=== PATIENT | female | born 1975 | race Caucasian/White ===

== ENCOUNTER 2020-03-20 15:20 | Inpatient (IN) | payer MEDICAID, SELFPAY ==
[2020-03-20] VITALS (9 sets, daily range): BP systolic 129–168; BP diastolic 75–101; PULSE 60–123; RESP 16–32; TEMP 37.4–38.1; O2SAT 94–99; BMI 38.0
--- NOTE | 2020-03-20 16:21 | ECG_ITS ---
[facility] Test Date: 2020-03-20 Pat Name: Kandy Nieves Department: Room: Gender: Female Cell Tuber Hand: : 1975 Requested By: Yael Dobson Order Number: [id number] Ying MD: Chava Rosales M.D. Measurements Intervals [place] Rate: 98 P: 43 IN: 159 QRS: 64 QRSD: 86 T: 37 QT: 327 QTc: 418 Interpretive Statements SINUS RHYTHM POSSIBLE LEFT ATRIAL ENLARGEMENT [-0.1mV P WAVE IN V1/V2] Compared to ECG 08/31/2015 14:20:09 No significant changes Electronically Signed On 03-21-2020 16:01:05 CDT by Chava Rosales M.D. [email or web address]
--- NOTE | 2020-03-20 16:22 | XRR_ITS ---
PROCEDURE INFORMATION: Exam: XR Chest, 1 View Exam date and time: 03/20/2020 5:16 PM Age: 44 years old Clinical indication: Cough TECHNIQUE: Imaging protocol: XR of the chest Views: Frontal portable upright view of the chest. COMPARISON: CR Chest 1 [place] [id number] 08/31/2015 3:00 PM FINDINGS: Lungs: The lungs are clear bilaterally. The pulmonary vasculature remains congested. Pleural space: No pleural effusion. No pneumothorax. Heart/Mediastinum: The heart is normal in size and contour. Mediastinum: Stable. Diaphragm: The right hemidiaphragm remains mildly elevated. Bones/joints: Stable. Organs: The gallbladder is likely surgically absent, with metallic clips overlying the gallbladder fossa. XR/XR chest 1V portable [id number] IMPRESSION: 1. Pulmonary vascular congestion, stable. 2. Prior cholecystectomy.
--- NOTE | 2020-03-20 16:35 | PC.NURSE ---
PT BEGAN HAVING WORD LILLIAN. INFORMED DR. PLAZA.
--- NOTE | 2020-03-20 16:46 | PC.NURSE ---
DR. PLAZA AT BEDSIDE EVALUATING PT VO FOR HEAD CT.
--- NOTE | 2020-03-20 16:56 | ED_ITS ---
HPI - General Adult General: Chief complaint: General Medical Stated complaint: fever, cough, CP, SOB Time Seen by Provider: 03/20/20 15:59 Source: patient and family Mode of arrival: ambulatory Limitations: no limitations History of Present Illness: HPI narrative: Kandy is a nice 44-year-old female who comes in complaining of generalized malaise, fever and loss of sense of ta ani/smell. The patient states that she has been this way for the past 2 to 3 days. She had a temperature of 102 earlier today. Patient states she just feels tired and fatigued. She is most concerned about possible COVID-19 infection. She is not been exposed to anybody to her knowledge but admits that it could be a possibility. Patient denies any other complaints or concerns. Associated symptoms: Reports headache(s) and malaise; Deny chest pain, diaphoresis, rash, palpitations, syncope or vomiting Review of Systems Const: Reports: fever(s), chills, body aches, fatigue, malaise and other (Patient reports loss of sense of taste and loss of sense of smell.); Denies: diaphoresis Eyes: Denies: change in vision ENMT: Denies: throat pain Card: Denies: chest pain, palpitations, syncope, pre-syncope or dyspnea on exertion Resp: Denies: non-productive cough GI: Denies: abdominal pain, vomiting or diarrhea : Denies: flank pain, dysuria, urinary frequency or urinary urgency Musc: Denies: neck pain, back pain or extremity pain Skin/Breast: Denies: rash or pruritus Neuro: Reports: headache(s); Denies: numbness in extremities, weakness in extremities or dizziness Finesse/Lymph: Denies: easy bruising or easy bleeding All/Imm: Denies: urticaria PFSH ED PFSH: Medical History Hypertension Surgical History H/O knee surgery S/P cholecystectomy Tubal ligation status Family History (Updated 03/20/20 @ 20:22 by Lou Rivera MD) Mother Stroke Mother had an ischemic stroke age 65 Social History (Updated 03/20/20 @ 20:23 by Lou Rivera MD) Smoking and tobacco status: never smoked Alcohol intake: never Substance/Drug Use: never Household members: spouse Housing: House Marital status: Physical Exam Const: COMMON NORMALS: no acute distress, patient oriented x3, no limitations, healthy appearing and well nourished GENERAL APPEARANCE: cooperative, well kempt and well developed HENMT: COMMON NORMALS: normocephalic, atraumatic, external ears normal, EAC's normal and Normal external nose present HEAD & SCALP: normal to inspection, normocephalic and atraumatic FACE & SINUS: normal facial exam and face symmetric NOSE: Normal external nose present and Normal nares present EXTERNAL EAR: Yes external ears normal EXTERNAL AUDITORY CANAL: EAC's normal MOUTH: Normal oral and palatal mucosa present, lip normal and tongue normal Eye: COMMON NORMALS: Equal, round and reactive pupils present and conjunctivae normal GENERAL EYE: appearance normal, both eyes and all related structures ALIGNMENT: Yes alignment normal PERIORBITAL: periorbital findings normal EYELID: eyelids normal CONJUNCTIVA: Yes conjunctivae normal SCLERA: sclerae normal PUPIL: Yes Equal, round and reactive pupils present Neck/C-Spine: COMMON NORMALS: full ROM, no lymphadenopathy, supple, no meningeal signs and no JVD GENERAL: Yes normal visual inspection and Yes trachea midline Chest: COMMONS NORMALS: normal inspection of the chest and normal palpation of entire chest wall Resp: COMMON NORMALS: normal respiratory effort, No retractions and No use of accessory muscles EFFORT & INSPECTION: Yes able to speak in complete sentences and Yes symmetric chest movement AUSCULTATION: no crackles, no rales, no rhonchi and no wheezes Cardio: COMMON NORMALS: no JVD, regular rate, regular rhythm, S1 normal heart sound present and S2 normal heart sound present RATE: regular rate RHYTHM: regular rhythm HEART SOUNDS: S1 normal heart sound present, S2 normal heart sound present, no click, no gallops, no murmurs, no rubs and abnormal split S2 GI: COMMON NORMALS: Soft to palpation and No hepatosplenomegaly present PALPATION: Yes Soft to palpation, No Tenderness to palpation present (GI), No Guarding due to palpation present (GI), No Rigid due to palpation, Yes No hepatosplenomegaly present, No Hernia present, No Palpable mass present and No Pulsatile mass present : COMMON NORMALS: Yes no CVA tenderness BLADDER/KIDNEY EXAM: Yes no CVA tenderness EXTERNAL FEMALE EXAM: No Hernia present Back/Pelvis: COMMON NORMALS: no CVA tenderness, thoracic and lumbar spine normal to inspection, no thoracic nor lumbar tenderness and thoraco-lumbar ROM normal Extremity: COMMON NORMALS: normal to inspection, full ROM, capillary refill normal, no joint enlargement, no clubbing, cyanosis or edema and no calf tenderness Neuro: COMMON NORMALS: patient oriented x3, CN's II-XII intact bilaterally, moves all extremities, no focal motor deficits and no sensory deficits noted MENINGEAL SIGNS: Yes no meningeal signs SPEECH: speech normal Psych: COMMON NORMALS: mental status grossly normal, Normal thought process present, cooperative, normal affect, speech normal and activity/motor behavior normal APPEARANCE: Yes well kempt SPEECH: Yes normal speech THOUGHT PROCESS: Normal thought process present Skin: COMMON NORMALS: no rashes or lesions noted, turgor normal, no jaundice, no petechiae and no mottling GENERAL SKIN EXAM: no rashes or lesions noted and turgor normal Course ED course: 1644 -patient has had an abrupt onset of mental status change. She is not wanting to interact or talk. She shows no sign of lateralizing weakness, seizure or other acute abnormality she is just not speaking as before. We will check a blood sugar and add a head CT to her work-up. 1654 -the patient is now answering questions inappropriately, word salad type of demonstration. She still has no lateralizing weakness. I will add CTA and call a stroke alert. 1700 -Case reviewed with Dr. León and [facility] residential construction instructor for our stroke alert team. He will evaluate the patient CTs and do a telemedicine con sult as soon as possible. 1734 -Case reviewed with Dr. León, please see his consult note for details. He has a NIH of 1 and feels that her word salad/a aphasia symptoms are oscillating. At this time he does not recommend TPA. I have gone back into reevaluate the patient and she is answering cushions appropriately at this time. We will continue to monitor her closely but will not give TPA at this time. Vital Signs: Vital signs: Vital Signs Temperature 99.3 F 03/20/20 15:49 Pulse Rate 112 H 03/20/20 20:00 Respiratory Rate 21 H 03/20/20 19:30 Blood Pressure 141/93 03/20/20 20:00 Pulse Oximetry 95 03/20/20 20:00 MDM - General Adult MDM Narrative: Medical decision making narrative: After the patient had abrupt mental status change the stroke alert was called with Dr. León not believe this was a stroke but likely mental status change secondary to another cause. The patient symptoms have cleared and she is never been febrile here. She has had fatigue, headache but denies any neck pain or stiffness. I discussed the case in full with Dr. Vasquez and Dr. Rivera, they agreed to admit. They will decide whether they want an LP as well but I believe it should be on the 4-1/2-hour window in case the patient would not develop signs of stroke again as she may need TPA. They will evaluate and let me know if they want to proceed with that. At this time the patient is feeling much better and wants to rest. I see no sign of meningitis, sepsis or other infectious syndrome but she is persistently tachycardic I do think COVID-[address] Rivera will continue to work things up from here. Lab Data: Attestation: I reviewed the patient's lab results. Labs: Lab Results 03/20/20 03/20/20 03/20/20 Range/Units 12:45 16:45 16:45 WBC 13.4 H (4.0-10.0) 10^3/ uL RBC 5.46 H (4.1-5.3) 10^6/u L Hgb 16.1 H (11.5-15.3) g/dL Hct 49.2 H (37.0-47.0) % MCV 90.1 (81-99) fL MCH 29.5 (28.0-34.0) pg MCHC 32.7 (30.0-36.0) g/dL RDW 12.7 (12.1-15.1) % Plt Count 325 (130-400) 10^3/c mm MPV 10.5 H (7.4-10.4) fL Neut % (Auto) 89.0 % Lymph % (Auto) 6.6 % [place] % (Auto) 3.6 % Eos % (Auto) 0.0 % Baso % (Auto) 0.1 % Neut # (Auto) 11.92 H (1.8-7.7) 10^3/u L Lymph # (Auto) 0.9 (0.8-4.8) 10^3/u L [place] # (Auto) 0.5 (0.2-0.9) 10^3/u L Eos # (Auto) 0.0 (0.0-0.8) 10^3/u L Baso # (Auto) 0.0 (0.0-0.1) 10^3/u L Nucleated RBC % (a uto) 0 % Nucleated RBCs # 0.0 /100WBC PT Cancelled INR Cancelled APTT (23.9-36.7) SECO NDS D-Dimer (0-0.59) ug/mIFE U Sodium 138 (136-145) mmol/L Potassium 3.8 (3.5-5.1) mmol/L Chloride 100 (98-107) mmol/L Carbon Dioxide 25 (22-29) mmol/L Anion Gap 16.8 (5-19) BUN 14 (6-20) mg/dL Creatinine 0.5 (0.5-0.9) mg/dL GFR Calculation 134.7 H (90-130) mL/min Glucose 130 H (65-115) mg/dL POC Glucose (70-110) mg/dL Estimat Average Gl ucose Hemoglobin A1c (4.0-6.0) % Calculated Osmolal ity 284 L (285-295) mOsm/k g Lactic Acid (0.5-2.2) mmol/L Calcium 10.1 (8.5-10.5) mg/dL Magnesium 2.1 (1.7-2.3) mg/dL Total Bilirubin 0.3 (0.15-1.2) mg/dL AST 16 (0-32) U/L ALT 24 (0-33) U/L Alkaline Phosphata se 66 (35-105) IU/L Troponin T Baselin e (0-10) ng/L Troponin T 120 Min chalkyitsik (0-10) ng/L Delta Troponin T (0-10) ABS# Total Protein 7.9 (6.6-8.7) g/dL Albumin 5.0 (3.5-5.2) g/dL Globulin 2.9 (1.3-4.6) g/dL Procalcitonin (0-0.5) ng/mL HCG, Qual (Negative) Urine Color (Yellow) Urine Appearance (CLEAR) Urine pH (5-7) Ur Specific Gravit y (1.005-1.030) Urine Protein (Negative) Urine Glucose (UA) (Normal) Urine Ketones (Negative) Urine Blood (Negative) Urine Nitrate (Negative) Urine Bilirubin (NEGATIVE) Urine Urobilinogen (Negative) mg/dL Ur Leukocyte Naomie ase (Negative) Urine RBC (0-2) /hpf Urine WBC (0-5) /hpf Ur Squamous Epith Cells (0-5) Amorphous Sediment Urine Bacteria (NONE) Influenza Type A A g (Negative) Influenza Type B A g (Negative) 03/20/20 03/20/20 03/20/20 Range/Units 16:45 16:45 16:45 WBC (4.0-10.0) 10^3/ uL RBC (4.1-5.3) 10^6/u L Hgb (11.5-15.3) g/dL Hct (37.0-47.0) % MCV (81-99) fL MCH (28.0-34.0) pg MCHC (30.0-36.0) g/dL RDW (12.1-15.1) % Plt Count (130-400) 10^3/c mm MPV (7.4-10.4) fL Neut % (Auto) % Lymph % (Auto) % [place] % (Auto) % Eos % (Auto) % Baso % (Auto) % Neut # (Auto) (1.8-7.7) 10^3/u L Lymph # (Auto) (0.8-4.8) 10^3/u L [place] # (Auto) (0.2-0.9) 10^3/u L Eos # (Auto) (0.0-0.8) 10^3/u L Baso # (Auto) (0.0-0.1) 10^3/u L Nucleated RBC % (a uto) % Nucleated RBCs # /100WBC PT INR APTT (23.9-36.7) SECO NDS D-Dimer (0-0.59) ug/mIFE U Sodium (136-145) mmol/L Potassium (3.5-5.1) mmol/L Chloride (98-107) mmol/L Carbon Dioxide (22-29) mmol/L Anion Gap (5-19) BUN (6-20) mg/dL Creatinine (0.5-0.9) mg/dL GFR Calculation (90-130) mL/min Glucose (65-115) mg/dL POC Glucose (70-110) mg/dL Estimat Average Gl ucose Hemoglobin A1c (4.0-6.0) % Calculated Osmolal ity (285-295) mOsm/k g Lactic Acid 1.3 (0.5-2.2) mmol/L Calcium (8.5-10.5) mg/dL Magnesium (1.7-2.3) mg/dL Total Bilirubin (0.15-1.2) mg/dL AST (0-32) U/L ALT (0-33) U/L Alkaline Phosphata se (35-105) IU/L Troponin T Baselin e 6 (0-10) ng/L Troponin T 120 Min chalky[place]ik (0-10) ng/L Delta Troponin T (0-10) ABS# Total Protein (6.6-8.7) g/dL Albumin (3.5-5.2) g/dL Globulin (1.3-4.6) g/dL Procalcitonin (0-0.5) ng/mL HCG, Qual Negative (Negative) Urine Color (Yellow) Urine Appearance (CLEAR) Urine pH (5-7) Ur Specific Gravit y (1.005-1.030) Urine Protein (Negative) Urine Glucose (UA) (Normal) Urine Ketones (Negative) Urine Blood (Negative) Urine Nitrate (Negative) Urine Bilirubin (NEGATIVE) Urine Urobilinogen (Negative) mg/dL Ur Leukocyte Naomie ase (Negative) Urine RBC (0-2) /hpf Urine WBC (0-5) /hpf Ur Squamous Epith Cells (0-5) Amorphous Sediment Urine Bacteria (NONE) Influenza Type A A g (Negative) Influenza Type B A g (Negative) 03/20/20 03/20/20 03/20/20 Range/Units 16:45 16:45 16:45 WBC (4.0-10.0) 10^3/ uL RBC (4.1-5.3) 10^6/u L Hgb (11.5-15.3) g/dL Hct (37.0-47.0) % MCV (81-99) fL MCH (28.0-34.0) pg MCHC (30.0-36.0) g/dL RDW (12.1-15.1) % Plt Count (130-400) 10^3/c mm MPV (7.4-10.4) fL Neut % (Auto) % Lymph % (Auto) % [place] % (Auto) % Eos % (Auto) % Baso % (Auto) % Neut # (Auto) (1.8-7.7) 10^3/u L Lymph # (Auto) (0.8-4.8) 10^3/u L [place] # (Auto) (0.2-0.9) 10^3/u L Eos # (Auto) (0.0-0.8) 10^3/u L Baso # (Auto) (0.0-0.1) 10^3/u L Nucleated RBC % (a uto) % Nucleated RBCs # /100WBC PT 12.70 INR 0.93 APTT 24.5 (23.9-36.7) SECO NDS D-Dimer 0.29 (0-0.59) ug/mIFE U Sodium (136-145) mmol/L Potassium (3.5-5.1) mmol/L Chloride (98-107) mmol/L Carbon Dioxide (22-29) mmol/L Anion Gap (5-19) BUN (6-20) mg/dL Creatinine (0.5-0.9) mg/dL GFR Calculation (90-130) mL/min Glucose (65-115) mg/dL POC Glucose (70-110) mg/dL Estimat Average Gl ucose Hemoglobin A1c (4.0-6.0) % Calculated Osmolal ity (285-295) mOsm/k g Lactic Acid (0.5-2.2) mmol/L Calcium (8.5-10.5) mg/dL Magnesium (1.7-2.3) mg/dL Total Bilirubin (0.15-1.2) mg/dL AST (0-32) U/L ALT (0-33) U/L Alkaline Phosphata se (35-105) IU/L Troponin T Baselin e (0-10) ng/L Troponin T 120 Min chalk[place]ik (0-10) ng/L Delta Troponin T (0-10) ABS# Total Protein (6.6-8.7) g/dL Albumin (3.5-5.2) g/dL Globulin (1.3-4.6) g/dL Procalcitonin 0.04 (0-0.5) ng/mL HCG, Qual (Negative) Urine Color (Yellow) Urine Appearance (CLEAR) Urine pH (5-7) Ur Specific Gravit y (1.005-1.030) Urine Protein (Negative) Urine Glucose (UA) (Normal) Urine Ketones (Negative) Urine Blood (Negative) Urine Nitrate (Negative) Urine Bilirubin (NEGATIVE) Urine Urobilinogen (Negative) mg/dL Ur Leukocyte Naomie ase (Negative) Urine RBC (0-2) /hpf Urine WBC (0-5) /hpf Ur Squamous Epith Cells (0-5) Amorphous Sediment Urine Bacteria (NONE) Influenza Type A A g (Negative) Influenza Type B A g (Negative) 03/20/20 03/20/20 03/20/20 Range/Units 16:45 16:50 17:21 WBC (4.0-10.0) 10^3/ uL RBC (4.1-5.3) 10^6/u L Hgb (11.5-15.3) g/dL Hct (37.0-47.0) % MCV (81-99) fL MCH (28.0-34.0) pg MCHC (30.0-36.0) g/dL RDW (12.1-15.1) % Plt Count (130-400) 10^3/c mm MPV (7.4-10.4) fL Neut % (Auto) % Lymph % (Auto) % [place] % (Auto) % Eos % (Auto) % Baso % (Auto) % Neut # (Auto) (1.8-7.7) 10^3/u L Lymph # (Auto) (0.8-4.8) 10^3/u L [place] # (Auto) (0.2-0.9) 10^3/u L Eos # (Auto) (0.0-0.8) 10^3/u L Baso # (Auto) (0.0-0.1) 10^3/u L Nucleated RBC % (a uto) % Nucleated RBCs # /100WBC PT INR APTT (23.9-36.7) SECO NDS D-Dimer (0-0.59) ug/mIFE U Sodium (136-145) mmol/L Potassium (3.5-5.1) mmol/L Chloride (98-107) mmol/L Carbon Dioxide (22-29) mmol/L Anion Gap (5-19) BUN (6-20) mg/dL Creatinine (0.5-0.9) mg/dL GFR Calculation (90-130) mL/min Glucose (65-115) mg/dL POC Glucose 136 (70-110) mg/dL Estimat Average Gl ucose 120 Hemoglobin A1c 5.8 (4.0-6.0) % Calculated Osmolal ity (285-295) mOsm/k g Lactic Acid (0.5-2.2) mmol/L Calcium (8.5-10.5) mg/dL Magnesium (1.7-2.3) mg/dL Total Bilirubin (0.15-1.2) mg/dL AST (0-32) U/L ALT (0-33) U/L Alkaline Phosphata se (35-105) IU/L Troponin T Baselin e (0-10) ng/L Troponin T 120 Min chalk[place]ik (0-10) ng/L Delta Troponin T (0-10) ABS# Total Protein (6.6-8.7) g/dL Albumin (3.5-5.2) g/dL Globulin (1.3-4.6) g/dL Procalcitonin (0-0.5) ng/mL HCG, Qual (Negative) Urine Color (Yellow) Urine Appearance (CLEAR) Urine pH (5-7) Ur Specific Gravit y (1.005-1.030) Urine Protein (Negative) Urine Glucose (UA) (Normal) Urine Ketones (Negative) Urine Blood (Negative) Urine Nitrate (Negative) Urine Bilirubin (NEGATIVE) Urine Urobilinogen (Negative) mg/dL Ur Leukocyte Naomie ase (Negative) Urine RBC (0-2) /hpf Urine WBC (0-5) /hpf Ur Squamous Epith Cells (0-5) Amorphous Sediment Urine Bacteria (NONE) Influenza Type A A g Negative (Negative) Influenza Type B A g Negative (Negative) 03/20/20 03/20/20 Range/Units 19:05 19:10 WBC (4.0-10.0) 10^3/ uL RBC (4.1-5.3) 10^6/u L Hgb (11.5-15.3) g/dL Hct (37.0-47.0) % MCV (81-99) fL MCH (28.0-34.0) pg MCHC (30.0-36.0) g/dL RDW (12.1-15.1) % Plt Count (130-400) 10^3/c mm MPV (7.4-10.4) fL Neut % (Auto) % Lymph % (Auto) % [place] % (Auto) % Eos % (Auto) % Baso % (Auto) % Neut # (Auto) (1.8-7.7) 10^3/u L Lymph # (Auto) (0.8-4.8) 10^3/u L [place] # (Auto) (0.2-0.9) 10^3/u L Eos # (Auto) (0.0-0.8) 10^3/u L Baso # (Auto) (0.0-0.1) 10^3/u L Nucleated RBC % (a uto) % Nucleated RBCs # /100WBC PT INR APTT (23.9-36.7) SECO NDS D-Dimer (0-0.59) ug/mIFE U Sodium (136-145) mmol/L Potassium (3.5-5.1) mmol/L Chloride (98-107) mmol/L Carbon Dioxide (22-29) mmol/L Anion Gap (5-19) BUN (6-20) mg/dL Creatinine (0.5-0.9) mg/dL GFR Calculation (90-130) mL/min Glucose (65-115) mg/dL POC Glucose (70-110) mg/dL Estimat Average Gl ucose Hemoglobin A1c (4.0-6.0) % Calculated Osmolal ity (285-295) mOsm/k g Lactic Acid (0.5-2.2) mmol/L Calcium (8.5-10.5) mg/dL Magnesium (1.7-2.3) mg/dL Total Bilirubin (0.15-1.2) mg/dL AST (0-32) U/L ALT (0-33) U/L Alkaline Phosphata se (35-105) IU/L Troponin T Baselin e (0-10) ng/L Troponin T 120 Min chalky[place]ik 6.04 (0-10) ng/L Delta Troponin T 0.04 (0-10) ABS# Total Protein (6.6-8.7) g/dL Albumin (3.5-5.2) g/dL Globulin (1.3-4.6) g/dL Procalcitonin (0-0.5) ng/mL HCG, Qual (Negative) Urine Color Yellow (Yellow) Urine Appearance Hazy A (CLEAR) Urine pH 6 (5-7) Ur Specific Gravit y 1.010 (1.005-1.030) Urine Protein Trace (Negative) Urine Glucose (UA) Norm (Normal) Urine Ketones 2+ H (Negative) Urine Blood 2+ H (Negative) Urine Nitrate Negative (Negative) Urine Bilirubin Neg (NEGATIVE) Urine Urobilinogen Neg (Negative) mg/dL Ur Leukocyte Naomie ase Negative (Negative) Urine RBC 0-4 H (0-2) /hpf Urine WBC 5-10 H (0-5) /hpf Ur Squamous Epith Cells 5-10 H (0-5) Amorphous Sediment Not Reportable Urine Bacteria Trace (NONE) Influenza Type A A g (Negative) Influenza Type B A g (Negative) Imaging Data^: CXR: My impression: No acute cardiopulmonary findings. CT head Noncon/CTA Head and Neck: Radiologist's impression: [place] [address] CT Scan Report Signed with Addenda Patient: Kandy Nieves Unit #: [id number] : 1975 Age/Sex: 44 / F ADM Date: 03/20/20 Loc: ER Room/Bed: Attending Dr: Ordering Provider/Ordering MD: Yael Bell DO Date of Service: 03/20/20 Procedure(s): CT angio headneck* [id number] Accession Number(s): [id number] Report Number: [id number] without contrast: Indication: Other: Stroke symptons; Additional info: CVA symptoms Comparison: No relevant prior studies available. Findings: The ventricles are of normal size and configuration. There are no intra or extra-axial masses, lesions or collections. The lindsay white matter distinction is maintained throughout the brain. There is no intracranial hemorrhage. The visualized bones and sinuses are unremarkable. Addendum Dictated By: Elvis Frias MD Addendum Signed By: Elvis Frias MD Signed Date/Time: 03/20/201758 Addendum Cosigned By: ADDENDUM CT/CT angio headneck* [id number] IMPRESSION: No acute findings. Radiation Dose CTDIVOL = (mGy): DLP = 3081.87 3081.87 (mGy-cm) Addendum Dictated By: Elvis Frias MD Addendum Signed By: Elvis Frias MD Signed Date/Time: 03/20/201758 Addendum Cosigned By: PROCEDURE INFORMATION: Exam: CT Angiography Head With Contrast Exam date and time: 03/20/2020 5:02 PM Age: 44 years old Clinical indication: Other: Stroke symptons; Additional info: CVA symptoms TECHNIQUE: Imaging protocol: Computed tomography angiography of the head with intravenous contrast. 3D rendering: MIP and/or 3D reconstructed images were created by the technologist. Radiation optimization: All CT scans at this facility use at least one of these dose optimization techniques: automated exposure control; mA and/or kV adjustment per patient size (includes targeted exams where dose is matched to clinical indication); or iterative reconstruction. Contrast material: OMNI; Contrast volume: 95 ml; Contrast route: INTRAVENOUS (IV); COMPARISON: No relevant prior studies available. RADIATION DOSE METRICS: Total DLP (mGy-cm): 3081.87 FINDINGS: ANTERIOR CIRCULATION: Right internal carotid artery: Unremarkable. Intracranial segment is patent with no significant stenosis. No aneurysm. Right middle cerebral artery: Unremarkable. No occlusion or significant stenosis. No aneurysm. Right anterior cerebral artery: Unremarkable. No occlusion or significant stenosis. No aneurysm. Left internal carotid artery: Unremarkable. Intracranial segment is patent with no significant stenosis. No aneurysm. Left middle cerebral artery: Unremarkable. No occlusion or significant stenosis. No aneurysm. Left anterior cerebral artery: Unremarkable. No occlusion or significant stenosis. No aneurysm. POSTERIOR CIRCULATION: Right vertebral artery: Unremarkable. No occlusion or significant stenosis. No aneurysm. Left vertebral artery: Unremarkable. No occlusion or significant stenosis. No aneurysm. Basilar artery: Unremarkable. No occlusion or significant stenosis. No aneurysm. Right posterior cerebral artery: Unremarkable. No occlusion or significant stenosis. No aneurysm. Left posterior cerebral artery: Unremarkable. No occlusion or significant stenosis. No aneurysm. IMPRESSION: No large vessel stenosis or occlusion. PROCEDURE INFORMATION: Exam: CT Angiography Neck With Contrast Exam date and time: 03/20/2020 5:02 PM Age: 44 years old Clinical indication: Other: Stroke symptons; Additional info: CVA symptoms TECHNIQUE: Imaging protocol: Computed tomography angiography of the neck with intravenous contrast. 3D rendering: MIP and/or 3D reconstructed images were created by the technologist. Radiation optimization: All CT scans at this facility use at least one of these dose optimization techniques: automated exposure control; mA and/or kV adjustment per patient size (includes targeted exams where dose is matched to clinical indication); or iterative reconstruction. Contrast material: OMNI; Contrast volume: 95 ml; Contrast route: INTRAVENOUS (IV); COMPARISON: No relevant prior studies available. RADIATION DOSE METRICS: Total DLP (mGy-cm): 3081.87 FINDINGS: Right common carotid artery: No stenosis. No dissection or occlusion. Right internal carotid artery: No stenosis of the extracranial segment. No dissection or occlusion. Right external carotid artery: No occlusion or stenosis of the origin. Right vertebral artery: No stenosis. No dissection or occlusion. Left common carotid artery: No stenosis. No dissection or occlusion. Left internal carotid artery: No stenosis of the extracranial segment. No dissection or occlusion. Left external carotid artery: No occlusion or stenosis of the origin. Left vertebral artery: No stenosis. No dissection or occlusion. Bones/joints: No acute findings. Soft tissues: Normal. No significant soft tissue swelling. CT/CT angio headneck* [id number] IMPRESSION: No stenosis or occlusion. REFERENCES: NASCET CRITERIA. The degree of internal carotid artery stenosis is based on NASCET criteria. Normal is no stenosis. Mild is less than 50% stenosis. Moderate is 50-69% stenosis. Severe is 70% to 99% stenosis. Total occlusion is no detectable patent lumen. Radiation Dose CTDIVOL = (mGy): DLP = 3081.87 3081.87 (mGy-cm) Dictated By: Elvis Frias MD Signed By: Elvis Frias MD Signed Date/Time: 03/20/201726 DD/ 25 EKG Data^: EKG 1: Attestation: I personally reviewed and interpreted this EKG as follows: EKG interpretation date: 03/20/20 EKG interpretation time: 16:47 Interpretation: Normal sinus rhythm at 98 beats a minute, nonspecific ST and T wave changes, no blocks, normal intervals. Computer generated interpretation: Head/Neck CTA 03/20/20 16:55 IMPRESSION: No stenosis or occlusion. REFERENCES: NASCET CRITERIA. The degree of internal carotid artery stenosis is based on NASCET criteria. Normal is no stenosis. Mild is less than 50% stenosis. Moderate is 50-69% stenosis. Severe is 70% to 99% stenosis. Total occlusion is no detectable patent lumen. Radiation Dose CTDIVOL = (mGy): DLP = 3081.87~3081.87 (mGy-cm) ADDENDUM: 03/20/201758 IMPRESSION: No acute findings. Radiation Dose CTDIVOL = (mGy): DLP = 3081.87~3081.87 (mGy-cm) Discharge Plan Discharge Patient Disposition: Admitted As Inpatient Admit Provider: Lou Rivera Clinical Impression: TIA (transient ischemic attack), Dehydration, Sinus tachycardia, Fever Condition: Stable Coding Level of Care Code ED Tank Pumper Panelboard for g Fwd Exam Comprehensive NIH stroke score NIHSS Level Of Consciousness - 1a: 0 Level Of Consciousness Questions - 1b: Neither Correct Level Of Consciousness Commands - 1c: Both Correct Best Gaze - 2: Normal Visual Castelan - 3: No Visual Loss Facial Palsy - 4: Normal Motor Arm Right - 5: No Drift Motor Arm Left - 5: No Drift Motor Leg Right - 6: No Drift Motor Leg Left - 6: No Drift Limb Ataxia - 7: Absent Sensory - 8: Normal Best Language - 9: Severe Aphasia Dysarthia - 10: Normal Extinction And Inattention - 11: 0 Score Total Score: 4
--- NOTE | 2020-03-20 16:58 | PC.NURSE ---
PT TO CT VIA NURSE AND STRETCHER.
[2020-03-20 17:09] LABS: Basophils % 0.1 %; Hematocrit 49.2 % (37.0-47.0); Hemoglobin 16.1 g/dL (11.5-15.3); Lymphocytes # 0.9 10^3/uL (0.8-4.8); Lymphocytes % 6.6 %; Mean Corpuscular HGB Conc 32.7 g/dL (30.0-36.0); Mean Corpuscular Hemoglobin 29.5 pg (28.0-34.0); Mean Corpuscular Volume 90.1 fL (81-99); Mean Platelet Volume 10.5 fL (7.4-10.4); Monocytes # 0.5 10^3/uL (0.2-0.9); Monocytes % 3.6 %; Neutrophils # 11.92 10^3/uL (1.8-7.7); Nucleated Red Blood Cells % 0 %; Platelet Count 325 10^3/cmm (130-400); Red Blood Count 5.46 10^6/uL (4.1-5.3); Red Cell Distribution Width 12.7 % (12.1-15.1); White Blood Count 13.4 10^3/uL (4.0-10.0)
--- NOTE | 2020-03-20 17:14 | PC.NURSE ---
PT BACK IN ROOM FROM CT TELE NEUROLOGIST ON IPAD SPEAKING WITH PT.
[2020-03-20 17:25] LABS: Glucose Point of Care 136 mg/dL (70-110)
--- NOTE | 2020-03-20 17:25 | PC.NURSE ---
blood glucose is 136, doctor, and bith patient's nurses are aware
[2020-03-20 17:26] LABS: Lactic Sepsis W/Reflex 1.3 mmol/L (0.5-2.2)
[2020-03-20 17:27] LABS: Alanine Aminotransferase 24 U/L (0-33); Alkaline Phosphatase 66 IU/L (35-105); Anion Gap 16.8 (5-19); Aspartate Amino Transferase 16 U/L (0-32); Blood Urea Nitrogen 14 mg/dL (6-20); Calcium 10.1 mg/dL (8.5-10.5); Carbon Dioxide 25 mmol/L (22-29); Chloride 100 mmol/L (98-107); Globulin 2.9 g/dL (1.3-4.6); Glomerular Filtration Rate 134.7 mL/min (90-130); Glucose 130 mg/dL (65-115); Magnesium 2.1 mg/dL (1.7-2.3); Osmolality Calculated 284 mOsm/kg (285-295); Potassium 3.8 mmol/L (3.5-5.1); Sodium 138 mmol/L (136-145); Total Bilirubin 0.3 mg/dL (0.15-1.2); Total Protein 7.9 g/dL (6.6-8.7)
[2020-03-20 17:29] LABS: Troponin(5th) Baseline 6 ng/L (0-10)
[2020-03-20 17:31] LABS: HCG, Serum Qual Negative (Negative)
[2020-03-20 17:52] LABS: INR 0.93 (0.8-1.2); Partial Thromboplastin Time 24.5 SECONDS (23.9-36.7)
[2020-03-20] MEDS: acetaminophen 500 mg Tablet 1000 MG PO (17:56)
[2020-03-20] MEDS: piperacillin-tazobactam 3.375 GM in sodium chloride 0.9% (plus) 50 ML IV (17:57)
[2020-03-20] MEDS: sodium chloride 0.9% 1,000 ML 999 ML IV (17:57)
[2020-03-20 18:19] LABS: Influenza A by IFA Negative (Negative); Influenza B by IFA Negative (Negative)
--- NOTE | 2020-03-20 18:38 | ECG_ITS ---
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 Measurements Intervals [place] Rate: 118 P: 67 FL: 173 QRS: 82 QRSD: 73 T: 43 QT: 340 QTc: 477 Interpretive Statements SINUS TACHYCARDIA LEFT ATRIAL ENLARGEMENT [-0.15mV P WAVE IN V1/V2] Compared to ECG 03/20/2020 16:47:51 Sinus rhythm no longer present Electronically Signed On 03-21-2020 16:15:01 CDT by Chava Rosales M.D. [id number]
--- NOTE | 2020-03-20 18:40 | PC.NURSE ---
WHILE AT BEDSIDE PT IS IN NAD. PT SPEECH HAS IMPROVED DR. PLAZA AT BEDSIDE AND NOTIFIED.
--- NOTE | 2020-03-20 18:58 | PC.NURSE ---
EKG done at 1853 and shown to ER doctor
--- NOTE | 2020-03-20 19:33 | P.HP_ITS ---
Providers/Chief Complaint Chief Complaint: cp/sob History of Present Illness Kandy Nieves is a 44 year old female who does not carry significant past medical history is coming in with chief complaint of abdominal pain, nausea vomiting and headache. Patient is stating that she started experiencing dry heaves, experienced 4 episodes of emesis without any fever, diarrhea, she has been having throbbing headache as well which she is attributing to her migraine history, she has not noticed any slurring of speech, numbness, tingling, weakness of her extremities, blurry vision. Today she started experiencing palpitations, facial flushing which prompted her visit to the hospital. She is endorsing lot of burping episodes, she is not experiencing acid reflux but positive for metallic sensation. All of these constellation of symptoms necessitated a visit to the ER. In the ER she was initially evaluated by the ER physician, while she was being worked up started noticing that Mrs. Nieves was not paying enough attention to 's verbal command, her speech was not slurred but incoherent, she was not paying attention to the attendant at all. Dr. Rosas was called to evaluate who did CT head CTA head and neck and called bar she wish initial NIH 4, [facility] did not recommend TPA because of NIH 1, they also did not recommend antiplatelet as well. Stroke was ruled out. By the time I evaluated the patient she was awake alert oriented, NIH 0, noticed facial flushing, sinus tachycardia heart rate consistently 120s, she is not endorsing any leg cramps, sedentary lifestyle, she is a non-smoker, occasional drinks alcohol, never had any history of clots, not on OCPs. She has not been taking her lisinopril because she ran out of it but she has been consistently taking verapamil and hydrochlorothiazide. Because of her metallic taste sensation she is currently being tested for coronavirus. Her blood sugar is normal, I would request d-dimer, give her another bolus because of her facial flushing or dehydration. Clinically looks dry. Requested ER to give another bolus. Review of Systems Const: Reports: chills, body aches, change in appetite and fatigue; Denies: fever(s) Eyes: Denies: change in vision or blurry vision ENMT: Denies: throat pain Card: Denies: chest pain Resp: Denies: dyspnea GI: Reports: abdominal pain, nausea and vomiting; Denies: diarrhea or constipation : Denies: flank pain Musc: Denies: neck pain Skin/Breast: Denies: rash Neuro: Denies: headache(s) Psych: Denies: anxiety Endo: Denies: polyuria Finesse/Lymph: Denies: easy bruising All/Imm: Denies: urticaria Medications/Allergies Home Medications Medication Instructions Recorded Confirmed Last Taken Type aspirin 325 mg PO ONCE 03/20/20 03/20/20 03/20/20 History hydrochlorothiazide 25 mg PO DAILY 03/20/20 03/20/20 03/20/20 History lisinopril 20 mg PO DAILY 03/20/20 03/20/20 03/20/20 History pravastatin 40 mg PO DAILY 03/20/20 03/20/20 03/19/20 History verapamil 80 mg PO DAILY 03/20/20 03/20/20 03/20/20 History Allergies Allergy/AdvReac Type Severity Reaction Status Date / Time No Known Allergies Allergy Verified 03/20/20 15:57 PFSH Acute PFSH: Medical History Hypertension Surgical History H/O knee surgery S/P cholecystectomy Tubal ligation status Family History (Updated 03/20/20 @ 20:22 by Lou Rivera MD) Mother Stroke Mother had an ischemic stroke age 65 Social History (Updated 03/20/20 @ 20:23 by Lou Rivera MD) Smoking and tobacco status: never smoked Alcohol intake: never Substance/Drug Use: never Household members: spouse Housing: House Marital status: Vitals/I&O/Wt Last Vital Signs Temp 99.3 F 03/20/20 15:49 Pulse 110 H 03/20/20 17:46 Resp 25 H 03/20/20 17:46 BP 162/82 03/20/20 17:46 Pulse Ox 95 03/20/20 17:46 Weight last 48 hrs Weight 88.451 kg Physical Exam Narrative: EXAM NARRATIVE: This is a pleasant female who is currently laying comfortably in her bed NIH 0 No focal deficit Noticed facial flushing Dry cracked lips Dehydrated clinically S1, S2 sinus tachycardia no signs of murmur Abdomen soft nontender visceral obesity, bowel sounds sluggish Lungs are clear to auscultation Lower extremity no edema gangrene or ulcer No CVA tenderness EOMI, PERRLA Gait was not tested Data : 03/20/20 16:45 03/20/20 16:45 Micro: Microbiology 03/20/20 19:05 Blood Culture - Preliminary Blood SPECIMEN COLLECTED 03/20/20 16:45 Blood Culture - Preliminary Blood SPECIMEN COLLECTED A&P Assessment and plan (1) Dehydration: Status: Acute (2) Sinus tachycardia: Status: Acute (3) TIA (transient ischemic attack): Status: Acute (4) Obesity: Status: Acute (5) Polycythemia: Status: Acute Additional A&P Information TIA ABCD score 1 NIH 0 Stroke was ruled out B [facility] stroke team did not recommend TPA or antiplatelet Currently she is symptom-free, I will give her 1 dose of sumatriptan to see if that would resolve her headache Her headache right now is 3/10 throbbing in nature, endorses history of migraine CT head and neck unremarkable, CT head without contrast unremarkable Clinically dehydrated Polycythemia secondary to dehydration Resuscitated with fluid I do believe that her dehydration is the cause of sinus tachycardia and hemoconcentration causing leukocytosis I do not see any source of infection Considering history of vomiting 24 hours ago I would get CT abdomen to rule out any GI etiology She has already received sepsis bolus and Zosyn in the ER, I would hold on adding antibiotics until CT results She is denying dysuria, fever, chest x-ray unremarkable, urinalysis unremarkable Please note urinalysis is positive for ketones Obesity: We will check A1c level, patient has lost 40 to 50 pounds intentionally in last few months Hypertension: She has not been taking her lisinopril but is consistent with her hydrochlorothiazide and verapamil, because of her active dehydration I would hold hydrochlorothiazide, continue verapamil to avoid rebound tachycardia, no history of A. fib or atrial flutter Full code DVT prophylaxis Lovenox Cardiac diet Attestations Medical Necessity Statement*: I am anticipating she will be discharged in less than 48 hours after we rule out COVID, currently need IV fluid resuscitation for her dehydration, initially got treated for sepsis with IV fluids and antibiotics Time Spent in Patient Care: (>than 50% of time spent in counselling and/or direct pt care on unit) . 50mins Coding Level of Care Code Acute Child Care Centre Manager for Chg Fwd Diagnoses Dehydration E86.0 Sinus tachycardia R00.0 TIA (transient ischemic attack) G45.9 Obesity E66.9 Polycythemia D75.1
[2020-03-20 19:44] LABS: Troponin 5 2HR 6.04 ng/L (0-10); Troponin 5 2HR Delta 0.04 ABS# (0-10)
[2020-03-20 19:48] LABS: Bilirubin Urine Neg (NEGATIVE); Blood Urine 2+ (Negative); Glucose Urine UA Norm (Normal); Ketones Urine 2+ (Negative); Leukocyte Esterase Urine Negative (Negative); Nitrate Urine Negative (Negative); Protein Urine Trace (Negative); Urine Appearance Hazy (CLEAR); Urine Color Yellow (Yellow); Urobilinogen Urine Neg (Negative); pH Urine 6 (5-7)
[2020-03-20 19:55] LABS: Add Urine Culture? No; Bacteria Urine TRACE; RBC Urine 0-4 /hpf (0-2)
--- NOTE | 2020-03-20 20:15 | PC.NURSE ---
REPORT CALLED TO BUSHRA Valente RN
--- NOTE | 2020-03-20 20:24 | CTR_ITS ---
PROCEDURE INFORMATION: Exam: CT Abdomen And Pelvis Without Contrast Exam date and time: 03/20/2020 9:07 PM Age: 44 years old Clinical indication: Abdominal pain; Generalized; Additional info: Nausea vomiting TECHNIQUE: Imaging protocol: Computed tomography of the abdomen and pelvis without contrast. Radiation optimization: All CT scans at this facility use at least one of these dose optimization techniques: automated exposure control; mA and/or kV adjustment per patient size (includes targeted exams where dose is matched to clinical indication); or iterative reconstruction. COMPARISON: No relevant prior studies available. RADIATION DOSE METRICS: Total DLP (mGy-cm): 1496.66 FINDINGS: Heart: The heart is enlarged. There is a small pericardial effusion. Mediastinal space: A small hiatal hernia is present. Liver: Unremarkable.No mass. Gallbladder and bile ducts: There has been a cholecystectomy. There is no common bile duct dilation. Pancreas: Normal. No ductal dilation. Spleen: Normal. No splenomegaly. Adrenals: Normal. No mass. Kidneys and ureters: There is no evidence of hydronephrosis. Stomach and bowel: Extensive diverticulosis is present in the distal colon. There is no evidence of colitis/diverticulitis. There is no evidence of intestinal perforation or obstruction. Appendix: A normal appendix is identified. Intraperitoneal space: Unremarkable. No free air. No significant fluid collection. Vasculature: Unremarkable.No abdominal aortic aneurysm. Lymph nodes: Unremarkable.No enlarged lymph nodes. Bladder: The bladder is decompressed. Reproductive: Unremarkable as visualized. Bones/joints: Unremarkable. No acute fracture. Soft tissues: Unremarkable. CT/CT abdomen pelvis wo con [id number] IMPRESSION: No acute abnormality. No bowel thickening or inflammatory changes. Radiation Dose CTDIVOL = (mGy): DLP = 1496.66 (mGy-cm)
[2020-03-20 20:46] LABS: Estmated Average Glucose 120; Hemoglobin A1C 5.8 % (4.0-6.0)
[2020-03-20 20:48] LABS: D Dimer 0.29 ug/mIFEU (0-0.59)
[2020-03-20 20:55] LABS: Procalcitonin 0.04 ng/mL (0-0.5)
[2020-03-20] MEDS: enoxaparin 40 mg/0.4 mL Syringe SUBCUT (22:00)
[2020-03-20] MEDS: lidocaine 2% viscous 15 ML, aluminum-mag hydrox-simethicon 30 ML, sucralfate oral liq 1 GM PO (22:00)
[2020-03-21] VITALS (7 sets, daily range): BP systolic 121–156; BP diastolic 69–86; PULSE 101–119; RESP 18–24; TEMP 37.7–39.5; O2SAT 93–99
[2020-03-21 05:25] LABS: Basophils % 0.3 %; Eosinophils % 0.1 %; Hematocrit 41.2 % (37.0-47.0); Hemoglobin 13.6 g/dL (11.5-15.3); Lymphocytes # 1.2 10^3/uL (0.8-4.8); Lymphocytes % 10.2 %; Mean Corpuscular Hemoglobin 29.7 pg (28.0-34.0); Mean Platelet Volume 11.1 fL (7.4-10.4); Monocytes # 0.9 10^3/uL (0.2-0.9); Monocytes % 7.7 %; Neutrophils # 9.53 10^3/uL (1.8-7.7); Neutrophils % 81.2 %; Nucleated Red Blood Cells % 0 %; Platelet Count 274 10^3/cmm (130-400); Red Blood Count 4.58 10^6/uL (4.1-5.3); Red Cell Distribution Width 12.7 % (12.1-15.1); White Blood Count 11.7 10^3/uL (4.0-10.0)
[2020-03-21 05:37] LABS: Anion Gap 12.4 (5-19); Blood Urea Nitrogen 11 mg/dL (6-20); Calcium 8.7 mg/dL (8.5-10.5); Carbon Dioxide 25 mmol/L (22-29); Chloride 104 mmol/L (98-107); Glomerular Filtration Rate 174.2 mL/min (90-130); Glucose 128 mg/dL (65-115); Osmolality Calculated 284 mOsm/kg (285-295); Potassium 3.4 mmol/L (3.5-5.1); Sodium 138 mmol/L (136-145)
[2020-03-21] MEDS: sodium chloride 0.9% 1,000 ML 30 ML IV (06:04)
[2020-03-21 06:05] LABS: C Reactive Protein 0.5 mg/L (0.0-4.9)
[2020-03-21] MEDS: acetaminophen 325 mg Tablet 650 MG PO ×2 (06:59→15:15)
[2020-03-21] MEDS: pantoprazole DR 40 mg Tablet 20 MG PO (08:09)
[2020-03-21] MEDS: atorvastatin 40 mg Tablet 20 MG PO (08:10)
[2020-03-21] MEDS: aspirin 81 mg EC Tablet PO (08:10)
[2020-03-21] MEDS: lisinopril 20 mg Tablet PO (08:10)
--- NOTE | 2020-03-21 10:13 | PC.CHAP ---
Pastoral Care Encounter/Spiritual Assessment Type of Contact [] Declined optometric technician visit [] Patient/Family/Request visit [] Outpatient visit [] Follow-up visit [] Physician referral [] Code/Alert [] Routine visit [] Staff referral [] Actively dying [] Patient sleeping [] Family support [] [] Out of room [] Palliative care [] [] Receiving care in room [] Pre-surgical visit [] Trauma [] Long length of stay [] ICU visit [x] Other: isolation Relational/Emotional Strength [] Patient feels connected with others/family/visitors/staff [] Distress [] Loneliness/isolation [] Abandonment Spirituality of Patient [] Person of Carley [] Attends Yarsani of their Carley [] Believes in Prayer [] Reads Bible or Caodaism materials [] There are Spiritual issues to be addressed Wallboard Worker Interventions [] Prayer [] Active listening [] Non-anxious presence [] Spiritual/emotional support [] Crisis/trauma care [] Spiritual counseling [] Bereavement support [] Provided bereavement packet [] Provided Bible/devotional materials [] Provided toy/stuffed animal, coloring book to patient or family member [] Provided Communion [] Anointing/[place] [] Salvation [x] Completed spiritual assessment [] Other: Impact on Illness or Injury [] Angry [] Fearful [] Anxious [] Often cries [] Exhaustion [] Unable to work [] Unable to attend shinto [] Unable to walk/stand [] Unable to read [] Unable to drive [] Unable to eat/drink [] Unable to sleep [] Unable to be with family [] Patient intubated [] Other: Summary Time spent with patient
[2020-03-21] MEDS: cefTRIAXone 1,000 MG in sodium chloride 0.9% (plus) 50 ML 100 MG IV (15:15)
--- NOTE | 2020-03-21 17:38 | PM.PN ---
Subjective Subjective: Interval history: febrile to 103F today, headache nearly resolved, no new symptoms otherwise. Ct A/P unremarkable. No known tick exposure. Medications: Reviewed: Yes Vitals/I&O/Wt Last Vital Signs Temp 99.9 F H 03/21/20 16:35 Pulse 119 H 03/21/20 15:35 Resp 22 H 03/21/20 15:35 BP 144/79 03/21/20 15:35 Pulse Ox 93 03/21/20 15:35 03/21/20 03/21/20 03/21/20 06:59 14:59 22:59 Intake Total 3183.53 / 3183.53 Output Total 200 / 200 Balance -200 / -200 3183.53 / 3183.53 Weight last 48 hrs Weight 88.451 kg Physical Exam Narrative: EXAM NARRATIVE: GEN: Awake, alert and oriented, no acute distress CVS: S1S2 N RS: CTA B/L Abd: Soft, nt/nd , bs+ CIRCUIT BOARD REPAIR TECHNICIAN: no focal neuro deficits EXT: no edema Data : 03/21/20 04:39 03/21/20 04:39 Micro: Microbiology 03/20/20 16:45 Blood Culture - Preliminary Blood NEGATIVE TO DATE 03/20/20 19:05 Blood Culture - Preliminary Blood SPECIMEN COLLECTED A&P Assessment and plan (1) Dehydration: Status: Acute (2) Sinus tachycardia: Status: Acute (3) TIA (transient ischemic attack): Status: Acute (4) Obesity: Status: Acute (5) Polycythemia: Status: Acute Additional A&P Information # TIA ABCD score 1 NIH 0 Stroke was ruled out B [facility] stroke team did not recommend TPA or antiplatelet Currently she is symptom-free,headache resolved with sumatriptan Her headache right now is 3/10 throbbing in nature, endorses history of migraine CT head and neck unremarkable, CT head without contrast unremarkable # Fever, source under evaluation Blood cx negative thus far Ct a/p unremarkable CXR without any infiltrates COVID testing pending UA unremarkable Headache resolved, less concerning for meningitis Started empiric CTX today, patient otherwise well appearing clinically Tick panel with am labs #Clinically dehydrated Polycythemia secondary to dehydration Resuscitated with fluid # Hypertension: She has not been taking her lisinopril but is consistent with her hydrochlorothiazide and verapamil. For now continue HCTZ and verepamil She is unaware as to why she is on ASA or statins Full code DVT prophylaxis Lovenox Cardiac diet Attestations Medical Necessity Statement*: fever, source ubder evaluation Coding Level of Care Code Acute Downstream Biomanufacturing Technician for Chg Fwd Diagnoses Dehydration E86.0 Sinus tachycardia R00.0 TIA (transient ischemic attack) G45.9 Obesity E66.9 Polycythemia D75.1
--- NOTE | 2020-03-21 19:41 | PC.NURSE ---
UPON ENTERING THE PATIENT'S ROOM IT WAS NOTED THE PATIENT WAS SHOWING SIGNS OF DIFFICULTY BREATHING. WHEN ASKED IF SHE WAS SHE ANSWERED YES. WHEN ASKED IF THIS IS A NEW SYMPTOM, SHE ANSWERED YES. HER V/S ARE 100.7 ORAL, 99% ON RA, 156/86, AND PULS 118. PATIENT REPORTS SHE IS FEELING NUMBNESS IN HER LEFT HAND AND FACE. RT CALLED AND ASKED TO COME AND ASSESS. LUNGS ARE CLEAR AND AIR MOVING WELL THROUGHOUT BILATERAL LOBES. PATIENT ADMITS SHE IS VERY ANXIOUS. PATIENT INSTRUCTED TO TAKE SLOW DEEP BREATHES AND TRY TO CALM HER MIND AND NO THAT ALL HER V/S ARE WNL. PATIENT ALSO INSTRUCTED TO NOTIFY STAFF IF ANY NEW SYMPTOMS ARISE.
[2020-03-21] MEDS: LORazepam 2 mg/mL INJ 1 mL 0.5 MG IVP (20:59)
[2020-03-21] MEDS: enoxaparin 40 mg/0.4 mL Syringe SUBCUT (21:02)
[2020-03-22] VITALS (11 sets, daily range): BP systolic 130–186; BP diastolic 71–98; PULSE 100–134; RESP 18–24; TEMP 37.4–39.5; O2SAT 93–97
[2020-03-22] MEDS: acetaminophen 325 mg Tablet 650 MG PO ×4 (01:07→22:29)
[2020-03-22] MEDS: lactated ringers 1,000 ML 999 ML IV (02:11)
[2020-03-22 04:22] LABS: Basophils % 0.2 %; Hematocrit 39.1 % (37.0-47.0); Hemoglobin 13.2 g/dL (11.5-15.3); Lymphocytes # 1.5 10^3/uL (0.8-4.8); Lymphocytes % 10.9 %; Mean Corpuscular HGB Conc 33.8 g/dL (30.0-36.0); Mean Corpuscular Hemoglobin 29.7 pg (28.0-34.0); Mean Corpuscular Volume 88.1 fL (81-99); Mean Platelet Volume 10.4 fL (7.4-10.4); Monocytes # 1.4 10^3/uL (0.2-0.9); Neutrophils # 10.55 10^3/uL (1.8-7.7); Neutrophils % 77.9 %; Nucleated Red Blood Cells % 0 %; Platelet Count 243 10^3/cmm (130-400); Red Blood Count 4.44 10^6/uL (4.1-5.3); Red Cell Distribution Width 12.4 % (12.1-15.1); White Blood Count 13.6 10^3/uL (4.0-10.0)
[2020-03-22 04:56] LABS: Alanine Aminotransferase 16 U/L (0-33); Albumin Level 3.9 g/dL (3.5-5.2); Alkaline Phosphatase 48 IU/L (35-105); Anion Gap 12.1 (5-19); Aspartate Amino Transferase 15 U/L (0-32); Blood Urea Nitrogen 10 mg/dL (6-20); Calcium 7.8 mg/dL (8.5-10.5); Carbon Dioxide 27 mmol/L (22-29); Chloride 100 mmol/L (98-107); Globulin 2.5 g/dL (1.3-4.6); Glomerular Filtration Rate 174.2 mL/min (90-130); Glucose 136 mg/dL (65-115); Osmolality Calculated 280 mOsm/kg (285-295); Potassium 3.1 mmol/L (3.5-5.1); Sodium 136 mmol/L (136-145); Total Bilirubin 0.5 mg/dL (0.15-1.2); Total Protein 6.4 g/dL (6.6-8.7)
[2020-03-22] MEDS: LORazepam 2 mg/mL INJ 1 mL 0.5 MG IVP (04:56)
[2020-03-22 05:05] LABS: Thyroid Stimulating Hormone 0.25 uIU/mL (0.27-4.20)
[2020-03-22] MEDS: lidocaine 1% INJ 20 mL 5 ML IV (05:18)
--- NOTE | 2020-03-22 05:22 | PM.ACPR ---
Procedure/Consent Time out: Time Out Performed: Yes Consent: Consent for Procedure: Consent obtained from patient Additional Consent Information: Indication of lumbar puncture procedure: Persistent fever, tachycardia with mild confusion without any other source of infection While patient was taking shower in the bathroom, she could communicate with the nursing staff but did not know that she was in the bathroom, when I communicated with her she was oriented to time and person but not place and she stated that she was in a store. Patient was awake alert oriented to time and person but not place she could tell me her 's name, date of , pleasant to communicate Consent was taken from the patient after explaining the procedure, nurse was also present in the room After appropriate timeout, patient was prepped and draped in sterile fashion Preprocedural medication: 1% lidocaine Procedure: Patient was prepped and draped in sterile fashion, anatomical landmarks were marked, 7 cc of lidocaine 1% injected without any complications, LP needle was passed without any complications, after I felt release of pressure clear CSF was obtained in 4 bottles, patient tolerated procedure very well, no bleeding noticed. Hemostasis achieved, Band-Aid applied patient was instructed to stay in supine position for about 3 to 4 hours, Postprocedure complications: None Estimated blood loss: None CSF studies sent to the lab Adding vancomycin, ceftriaxone and acyclovir Acute Procedures Epistaxis Control: Time out performed: Yes Lumbar Puncture: Time out performed: Yes Patient position: left lateral decubitus Skin prep: Povidone-Iodine 1% Local anesthetic used: Lidocaine 1% Amount of anesthesia used (ml): 7 Interspace used: L4-L5 Fluid initially obtained: clear Complications: none
[2020-03-22 05:34] LABS: CSF Mononuclear # 0.176 10^3/uL (50-90); Mononuclear WBC CSF % 92 % (50-90); Polynuclear Cells ,CSF # 0.016 10^3/uL (0-10); Polynuclear WBC CSF % 8 % (0-10); Red Blood Cell CSF 0 10^3/uL (0-0); White Blood Cell CSF 192 /uL (0-5)
[2020-03-22 05:35] LABS: Appearance CSF CLEAR (CLEAR); Color CSF COLORLESS (COLORLESS)
[2020-03-22] MEDS: ketorolac 30 mg/mL INJ 15 MG IVP (05:37)
--- NOTE | 2020-03-22 05:38 | PC.PHAR ---
Pharmacokinetic dosing service Date: 03/22/20 Time: 529 Objective: Patient: Kandy Nieves Floor: 257-1 Age: 44 yo Serum creatinine: 0.4 mg/dL Height: 60.0 Inches Weight (kg): 88.451 Diagnosis: Relevant medical/social history: Cultures and sensitivities: Other labs: Assessment: IBW (kg): 45.50 Dosing wt(kg): 88.451 Estimated Creatinine clearance (ml/min): 130 Clearance limited to 130 ml/min to reduce risk of overdosing. CRCL method: Cockcroft and Gault using ibw(default). Drug selected: Vancomycin Loading dose (mg): 0 Vd (liters): 79.6 (factor used: 0.9 L/kg) Doug (hr-1): 0.112 Half life (hrs): 6.19 Recommended dose: 1500 mg Interval: 8 hrs Infusion time (hrs): 1.5 Predicted peak (mcg/mL): 29.3 Predicted trough (mcg/mL): 14.15 Total body weight is being used for vancomycin dosing. Renal function is stable [ ] /unstable [ ] Recommendations: Give Vancomycin 1500 mg q 8 hrs with an expected Cpeak of 29.3 mcg/ml and an expected Ctrough of 14.15 mcg/ml Renal dosing of other antibiotics (review renal dosing of other medications and list guidelines here): Thank you for the consult, will continue to follow. Signature: Janae Dunlap [facility]
[2020-03-22 05:50] LABS: Glucose CSF 73 mg/dL (40-70); Total Protein CSF 41 mg/dL (15-45)
[2020-03-22] MEDS: cefTRIAXone 2,000 MG in sodium chloride 0.9% (plus) 50 ML 100 MG IV ×2 (05:59→17:50)
[2020-03-22] MEDS: acyclovir 800 MG in sodium chloride 0.9% (100 ml) 100 ML 110 MG IV ×3 (06:00→23:30)
--- NOTE | 2020-03-22 06:39 | PC.NURSE ---
SHIFT SUMMARY UPON INITIAL ASSESSMENT THE PATIENT WAS COMPLAINING OF SHORTNESS OF BREATH. SHE WAS SEEN TO BE BREATHING FAST AND FLUSHED. RESPIRATORY THERAPY CONSULTED AND THEY REASSURED PATIENT HER LUNGS SOUND GOOD AND HER OXYGEN SATURATION WAS GREAT. INSTRUCTED TO SLOW BREATHING DOWN TO IMPROVE BREATHING. ONE TIME DOSE ORDERED FOR IVP ATIVAN. DURING A HOURLY ROUNDING THE PATIENT WAS UP IN THE SHOWER WITH HER IV HOOKED UP AND HER BRITTANI ON. WHEN ASKED THE PATIENT COULD NOT IDENTIFY WHAT SHE WAS DOING, BUT COULD DESCRIBE WHAT SHE WAS TRYING TO DO. WAS ABLE TO IDENTIFY HER NAME AND . SHE DID NOT KNOW WHERE SHE WAS. AT THIS TIME HER HEART RATE WAS IN THE 160'S. DENIED ANY ISSUES AT THIS TIME. TEMP WAS 102.[address] REICH CALLED AND NOTIFIED OF THE PATIENT'S STATUS. HE PRESENTED TO THE FLOOR AND ASSESSED THE PATIENT. HE ORDERED A LUMBAR PUNCTURE. PROCEDURE EXPLAINED TO THE PATIENT, CONSENT DISCUSSED AND SIGNED, AND TIME-OUT PERFORMED. PATIENT TOLERATED WELL. NEW ORDERS FOR ANTIBIOTICS GIVEN AND STARTED. SECOND IV STARTED IN THE RIGHT FOREARM. PATIENT IS STILL EXPERIENCING SOME CONFUSION AND ALTERED MENTAL STATUS.
[2020-03-22] MEDS: atorvastatin 40 mg Tablet 20 MG PO (08:17)
[2020-03-22] MEDS: lisinopril 20 mg Tablet PO (08:17)
[2020-03-22] MEDS: pantoprazole DR 40 mg Tablet 20 MG PO (08:18)
[2020-03-22] MEDS: aspirin 81 mg EC Tablet PO (08:18)
--- NOTE | 2020-03-22 08:56 | ECG_ITS ---
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 Measurements Intervals [place] Rate: 133 P: 70 NE: 150 QRS: 72 QRSD: 85 T: 8 QT: 362 QTc: 539 Interpretive Statements SINUS TACHYCARDIA NONSPECIFIC ST & T-WAVE ABNORMALITY ABNORMAL RHYTHM ECG Compared to ECG 03/20/2020 18:54:01 T-wave abnormality now present Atrial abnormality no longer present Electronically Signed On 03-22-2020 20:41:49 CDT by Ileana Peres M.D. [email or web address] [email or web address] community [email or web address] Inc.[facility].[employer]/store/[id number]
--- NOTE | 2020-03-22 09:18 | PM.PN ---
Subjective Subjective: Interval history: Overnight patient was noted to have more episodes of confusion and eventually underwent a lumbar puncture. CSF analysis with 192 WBC, mostly mononuclear 92%, CSF glucose at 73(approximately 50% of serum value), CSF protein at 41, with no organisms, however many white blood cells.. Oligoclonal bands and CSF Lyme antibodies added, which remain pending at this time. Tick panel also taken this morning, remains pending at this time. This morning also noted to have tachycardia with heart rate 160s, sinus rhythm on telemetry. Medications: Reviewed: Yes Vitals/I&O/Wt Last Vital Signs Temp 100.0 F H 03/22/20 07:00 Pulse 131 H 03/22/20 07:00 Resp 20 H 03/22/20 07:00 BP 153/80 03/22/20 07:00 Pulse Ox 95 03/22/20 07:00 03/21/20 03/22/20 03/22/20 22:59 06:59 14:59 Intake Total 480 / 3663.53 719.5 / 4383.03 1884 / 1884 Output Total 900 / 900 220 / 1120 400 / 400 Balance -420 / 2763.53 499.5 / 3263.03 1484 / 1484 Weight last 48 hrs Weight 88.451 kg Physical Exam Narrative: EXAM NARRATIVE: GEN: Awake, alert and oriented,per nursing reposrts has had intermittent episodic confusion, no acute distress CVS: S1S2 N RS: CTA B/L Abd: Soft, nt/nd , bs+ [employer]: no focal neuro deficits Data : 03/22/20 03:55 03/22/20 03:55 Micro: Microbiology 03/22/20 05:18 Gram Stain - Final Cerebrospinal Fluid 03/20/20 19:05 Blood Culture - Preliminary Blood NEGATIVE TO DATE 03/20/20 16:45 Blood Culture - Preliminary Blood NEGATIVE TO DATE A&P Assessment and plan (1) Meningoencephalitis: Status: Acute (2) Dehydration: Status: Acute (3) Sinus tachycardia: Status: Acute (4) Obesity: Status: Acute Qualifiers: Obesity type: unspecified obesity type Obesity classification: adult class 2 (BMI 35 - 39.9) Serious obesity comorbidity presence: unspecified whether serious comorbidity present Body mass index: BMI 38.0-38.9 Qualified Code(s): E66.9 - Obesity, unspecified; Z68.38 - Body mass index (BMI) 38.0-38.9, adult (5) Polycythemia: Status: Acute Additional A&P Information # meningoencephalitis Patient appears to have transient intermittent confusion as part of her presentation. Kernig's and Brudzinski sign is otherwise negative. Continues to have high-grade fever. Over night underwent LP. CSF analysis with 192 WBC, mostly mononuclear 92%, CSF glucose at 73(approximately 50% of serum value), CSF protein at 41, with no organisms, however many white blood cells.. Oligoclonal bands and CSF Lyme antibodies added, which remain pending at this time. 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 Further added on studies to the CSF include bacterial antigen panel HSV DNA. HIV screen, RPR Increased to 2 g IV every 12 overnight, added vancomycin and acyclovir. Increase dose of acyclovir to 10 mg/kg IV every 8 hours. Add doxycycline COVID-19 testing remains pending CSF cx pending # sinus tachycardia with HR 160s Cardizem 10mg IVP now, stop verapamil and start cardizem 60mg po TID, to be increased per HR response 12 lead EKG stat # TIA now appears less likely given LP findings upon presentation NIH 4 in ER, then NIH 0 to 1 subsequently B [facility] code stroke team did not recommend TPA or antiplatelet CT head and neck unremarkable, CT head without contrast unremarkable # Hypertension: SBP 140s-160s, will assess with addition of cardizem and add more agents if needed Full code DVT prophylaxis Lovenox Cardiac diet Attestations Medical Necessity Statement*: menigoencephalitis, undergoing evlaution and empiric iv abx and antivirals Coding Level of Care Code Acute Polishing Machine Operator for [facility] Diagnoses 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
--- NOTE | 2020-03-22 09:42 | PC.NURSE ---
Notified by reverse unit operator pt tachycardia in 160s. Pt assessed by charge nurse, Jennifer Jalloh. Dr. Vasquez notified. Orders given for cardizem 10 mg IVP now. This nurse assessed pt and found IV to be lying in the floor, telemetry off, and pt wearing regular clothing. New IV inserted, telemetry and hospital gown put on. Bed alarm set. Pt educated on need to use call light when she needs to get out of bed. Pt verbalized understanding.
[2020-03-22] MEDS: potassium chloride ER 10 mEq Tablet 40 MEQ PO (10:30)
[2020-03-22] MEDS: dilTIAZem 30 mg Tablet PO ×2 (10:57→13:38)
[2020-03-22 10:58] LABS: HIV 1 & 2 Antibody Non-Reactive (Non-Reactiv); HIV 1 & 2 Antigen Non-Reactive (Non-Reactiv)
[2020-03-22 11:06] LABS: Rapid Plasma Reagin Syphilis Nonreactive (Nonreactive)
[2020-03-22 14:18] LABS: Coronavirus Lab Test PTC SEE REPORT
[2020-03-22] MEDS: dilTIAZem 60 mg Tablet PO ×2 (16:08→21:02)
[2020-03-22] MEDS: doxycycline 100 mg Tablet PO (17:54)
[2020-03-22] MEDS: sodium chloride 0.9% 1,000 ML 30 ML IV (17:54)
[2020-03-22] MEDS: enoxaparin 40 mg/0.4 mL Syringe SUBCUT (21:02)
[2020-03-22] MEDS: labetalol 5 mg/mL SDV 20mL 10 MG IVP (22:29)
[2020-03-22 22:47] LABS: Free T4 Free Thyroxine 1.25 ng/dL (0.82-1.77)
[2020-03-23 01:00] VITALS: BP 142/75; PULSE 113; RESP 22; TEMP 38.2; O2SAT 96
[2020-03-23] MEDS: acetaminophen 325 mg Tablet 650 MG PO (04:15)
[2020-03-23 04:23] LABS: Basophils # 0.1 10^3/uL (0.0-0.1); Basophils % 0.4 %; Eosinophils % 0.1 %; Hematocrit 38.1 % (37.0-47.0); Lymphocytes # 1.5 10^3/uL (0.8-4.8); Lymphocytes % 13.4 %; Mean Corpuscular HGB Conc 34.1 g/dL (30.0-36.0); Mean Corpuscular Hemoglobin 30.2 pg (28.0-34.0); Mean Corpuscular Volume 88.6 fL (81-99); Mean Platelet Volume 10.2 fL (7.4-10.4); Monocytes # 1.5 10^3/uL (0.2-0.9); Monocytes % 12.8 %; Neutrophils % 72.9 %; Nucleated Red Blood Cells % 0 %; Platelet Count 213 10^3/cmm (130-400); Red Cell Distribution Width 12.5 % (12.1-15.1); White Blood Count 11.5 10^3/uL (4.0-10.0)
[2020-03-23] MEDS: cefTRIAXone 2,000 MG in sodium chloride 0.9% (plus) 50 ML 100 MG IV (04:30)
[2020-03-23 04:47] LABS: Alanine Aminotransferase 17 U/L (0-33); Albumin Level 3.9 g/dL (3.5-5.2); Alkaline Phosphatase 45 IU/L (35-105); Anion Gap 11.2 (5-19); Aspartate Amino Transferase 20 U/L (0-32); Blood Urea Nitrogen 8 mg/dL (6-20); Calcium 7.8 mg/dL (8.5-10.5); Carbon Dioxide 29 mmol/L (22-29); Chloride 96 mmol/L (98-107); Globulin 2.4 g/dL (1.3-4.6); Glomerular Filtration Rate 174.2 mL/min (90-130); Glucose 132 mg/dL (65-115); Osmolality Calculated 274 mOsm/kg (285-295); Potassium 3.2 mmol/L (3.5-5.1); Sodium 133 mmol/L (136-145); Total Bilirubin 0.6 mg/dL (0.15-1.2); Total Protein 6.3 g/dL (6.6-8.7)
[2020-03-23 05:00] VITALS: BP 145/84; PULSE 116; RESP 24; TEMP 39.2; O2SAT 96
[2020-03-23 05:01] LABS: Vancomycin Trough 9.8 ug/mL (10-15)
[2020-03-23 05:24] LABS: T3 Free 1.7 PG/ML (2.0-4.4)
--- NOTE | 2020-03-23 06:26 | PC.NURSE ---
Shift Summary Patient was confuse through the night. Patient at time was able to easily state her first and last name but had to think hard about her . At times she would ask what the question means. Patient was not able to identify the word for foot when asked what that specific body part was called. Patients had difficulty with short term memory. When talking about who staff persons are and where she is at currently, she was not able to remember after a minute of discussing it. Patient has a dizzy spell getting up from bed to ambulate to the bathroom. Patient was educated on using her call light to let staff know she needs to void. Bed alarm has been set, but patient continued to attempt to shut it off herself. Overall, patient was able to rest well through the night.
[2020-03-23] MEDS: acyclovir 800 MG in sodium chloride 0.9% (100 ml) 100 ML 110 MG IV ×2 (07:41→15:32)
[2020-03-23 07:49] VITALS: BP 161/80; PULSE 110; RESP 18; TEMP 38.1; O2SAT 93
[2020-03-23] MEDS: pantoprazole DR 40 mg Tablet 20 MG PO (08:26)
[2020-03-23] MEDS: metoprolol tartrate 50 mg Tablet PO (08:27)
[2020-03-23] MEDS: lisinopril 20 mg Tablet PO (08:27)
[2020-03-23] MEDS: doxycycline 100 mg Tablet PO (08:27)
[2020-03-23] MEDS: atorvastatin 40 mg Tablet 20 MG PO (08:27)
[2020-03-23] MEDS: dilTIAZem 60 mg Tablet PO (08:27)
[2020-03-23] MEDS: aspirin 81 mg EC Tablet PO (08:27)
--- NOTE | 2020-03-23 11:10 | CTR_ITS ---
PROCEDURE INFORMATION: Exam: CT Chest Without Contrast Exam date and time: 03/23/2020 11:59 AM Age: 44 years old Clinical indication: Abdominal pain; Other: Source of infection TECHNIQUE: Imaging protocol: Computed tomography of the chest without contrast. Radiation optimization: All CT scans at this facility use at least one of these dose optimization techniques: automated exposure control; mA and/or kV adjustment per patient size (includes targeted exams where dose is matched to clinical indication); or iterative reconstruction. COMPARISON: CT abdomen pelvis [facility] [id number] 03/20/2020 10:08 PM RADIATION DOSE METRICS: Total DLP (mGy-cm): FINDINGS: Thyroid: The bilateral thyroid lobes are unremarkable. Lungs: Unremarkable. No consolidation. No masses. Pleural space: No pneumothorax. No pleural effusion. Heart: Small-moderate pericardial effusion. Pulmonary arteries: The main and bilateral pulmonary arteries are enlarged with peripheral tapering. Aorta: Unremarkable. No aortic aneurysm. Other arteries: Ligamentum arteriosum calcification, normal variant. Lymph nodes: No enlarged lymph nodes. Bones/joints: No acute abnormality. No acute fracture. Soft tissues: Unremarkable. IMPRESSION: 1. Possible pulmonary arterial hypertension. Clinical correlation is recommended. 2. Small-moderate pericardial effusion. PROCEDURE INFORMATION: Exam: CT Abdomen And Pelvis Without Contrast Exam date and time: 03/23/2020 11:59 AM Age: 44 years old Clinical indication: Abdominal pain; Other: Source of infection TECHNIQUE: Imaging protocol: Computed tomography of the abdomen and pelvis without contrast. Radiation optimization: All CT scans at this facility use at least one of these dose optimization techniques: automated exposure control; mA and/or kV adjustment per patient size (includes targeted exams where dose is matched to clinical indication); or iterative reconstruction. COMPARISON: CT abdomen pelvis con [id number] 03/20/2020 10:08 PM RADIATION DOSE METRICS: Total DLP (mGy-cm): FINDINGS: Liver: Normal. No mass. Gallbladder and bile ducts: The gallbladder is surgically absent, with metallic clips in the gallbladder fossa. Pancreas: Normal. No ductal dilation. Spleen: Normal. No splenomegaly. Adrenals: Normal. No mass. Kidneys and ureters: Normal. No hydronephrosis. Stomach and bowel: Pancolonic diverticula are present without evidence of diverticulitis. Moderate rectal constipation. Appendix: No evidence of appendicitis. Intraperitoneal space: Unremarkable. No free air. No significant fluid collection. Vasculature: Mild aortic atherosclerotic calcification without aneurysm. Left pelvic phleboliths. Lymph nodes: No enlarged lymph nodes. Bladder: Unremarkable as visualized. Reproductive: Nonspecific fluid in the upper vagina. Bones/joints: Unremarkable. No acute fracture. Soft tissues: The patient's body habitus diminishes the image detail. Anterior abdominal wall subcutaneous adipose emphysema consistent with prior injections. CT/CT chest abd pel wo con IMPRESSION: 1. Diverticulosis. 2. Nonspecific fluid in the upper vagina. 3. Moderate rectal constipation. 4. Prior cholecystectomy. Radiation Dose CTDIVOL = (mGy): DLP = 2032.28~2032.28 (mGy-cm)
--- NOTE | 2020-03-23 11:46 | CTR_ITS ---
PROCEDURE INFORMATION: Exam: CT Head Without Contrast Exam date and time: 03/23/2020 11:59 AM Age: 44 years old Clinical indication: Altered mental status/memory loss; Additional info: Stroke TECHNIQUE: Imaging protocol: Computed tomography of the head without contrast. Radiation optimization: All CT scans at this facility use at least one of these dose optimization techniques: automated exposure control; mA and/or kV adjustment per patient size (includes targeted exams where dose is matched to clinical indication); or iterative reconstruction. COMPARISON: CT angio headneck* [id number] 03/20/2020 4:59 PM RADIATION DOSE METRICS: Total DLP (mGy-cm): 776.7 FINDINGS: Brain: There is hyperdensity in the left middle cerebral artery as best seen on coronal image 26. There is hypodensity in the medial left temporal lobe measuring approximately 4.2 x 3.5 cm on series 2, image 14. No associated hemorrhage. No midline shift. Ventricles: Normal. No ventriculomegaly. Bones/joints: Unremarkable. No acute fracture. Sinuses: Visualized sinuses are unremarkable. No fluid levels. Mastoid air cells: Visualized mastoid air cells are well aerated. Soft tissues: Unremarkable. 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 There is hyperdensity in the left middle cerebral artery consistent with thrombus. Radiation Dose CTDIVOL = (mGy): DLP = 776.7 (mGy-cm)
--- NOTE | 2020-03-23 11:49 | PM.PN ---
Subjective Subjective: Interval history: Overnight patient was noted to have more episodes of confusion and eventually underwent a lumbar puncture. CSF analysis with 192 WBC, mostly mononuclear 92%, CSF glucose at 73(approximately 50% of serum value), CSF protein at 41, with no organisms, however many white blood cells.. Oligoclonal bands and CSF Lyme antibodies added, which remain pending at this time. Tick panel also taken this morning, remains pending at this time. This morning also noted to have tachycardia with heart rate 160s, sinus rhythm on telemetry. Medications: Reviewed: Yes Vitals/I&O/Wt Last Vital Signs Temp 100.6 F H 03/23/20 07:49 Pulse 110 H 03/23/20 07:49 Resp 18 03/23/20 07:49 BP 161/80 03/23/20 07:49 Pulse Ox 93 03/23/20 07:49 03/22/20 03/23/20 03/23/20 22:59 06:59 14:59 Intake Total 1302 / 3426 846 / 4272 416 / 416 Output Total 600 / 1000 1000 / 2000 Balance 702 / 2426 -154 / 2272 416 / 416 Data : 03/23/20 03:58 03/23/20 03:58 Micro: Microbiology 03/22/20 10:56 Blood Culture - Preliminary Blood NEGATIVE TO DATE 03/22/20 10:50 Blood Culture - Preliminary Blood NEGATIVE TO DATE 03/22/20 05:18 Gram Stain - Final Cerebrospinal Fluid CSF Culture - Preliminary 03/22/20 05:18 Bacterial Antigens - Final Cerebrospinal Fluid A&P Assessment and plan (1) Meningoencephalitis: Status: Acute (2) Dehydration: Status: Acute (3) Sinus tachycardia: Status: Acute (4) Obesity: Status: Acute Qualifiers: Obesity type: unspecified obesity type Obesity classification: adult class 2 (BMI 35 - 39.9) Serious obesity comorbidity presence: unspecified whether serious comorbidity present Body mass index: BMI 38.0-38.9 Qualified Code(s): E66.9 - Obesity, unspecified; Z68.38 - Body mass index (BMI) 38.0-38.9, adult (5) Polycythemia: Status: Acute Additional A&P Information # meningoencephalitis Patient appears to have transient intermittent confusion as part of her presentation. Kernig's and Brudzinski sign is otherwise negative. Continues to have high-grade fever. Over night underwent LP. CSF analysis with 192 WBC, mostly mononuclear 92%, CSF glucose at 73(approximately 50% of serum value), CSF protein at 41, with no organisms, however many white blood cells.. Oligoclonal bands and CSF Lyme antibodies added, which remain pending at this time. 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 Further added on studies to the CSF include bacterial antigen panel HSV DNA. HIV screen, RPR Increased to 2 g IV every 12 overnight, added vancomycin and acyclovir. Increase dose of acyclovir to 10 mg/kg IV every 8 hours. Add doxycycline COVID-19 testing remains pending CSF cx pending # sinus tachycardia with HR 160s Cardizem 10mg IVP now, stop verapamil and start cardizem 60mg po TID, to be increased per HR response 12 lead EKG stat # TIA now appears less likely given LP findings upon presentation NIH 4 in ER, then NIH 0 to 1 subsequently [facility] code stroke team did not recommend TPA or antiplatelet CT head and neck unremarkable, CT head without contrast unremarkable # Hypertension: SBP 140s-160s, will assess with addition of cardizem and add more agents if needed Full code DVT prophylaxis Lovenox Cardiac diet Coding Level of Care Code Acute Life Skills Instructor for [facility] Diagnoses 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
[2020-03-23 12:00] VITALS: BP 124/75; PULSE 135; RESP 18; TEMP 39.6; O2SAT 96
[2020-03-23 12:24] LABS: C Reactive Protein 1.1 mg/L (0.0-4.9)
--- NOTE | 2020-03-23 13:03 | PM.TDS ---
Transfer Summary Providers Date of Admission: 03/21/20 19:25 Date of Discharge: 03/23/20 Attending Provider at Admission: Lou Rivera MD Attending Provider at Transfer: Jerry Myrick MD Anticipated Date of Transfer: Anticipated date of transfer: 03/23/20 Receiving Facility & Provider: Receiving Provider: [Dr. Hensley] Receiving facility: [[facility]] Diagnoses at Discharge Discharge Diagnosis (1) Acute right MCA stroke: Status: Acute (2) Infarction of left temporal lobe: Status: Acute (3) Meningoencephalitis: Status: Acute (4) Expressive aphasia: Status: Acute (5) Partial seizures: Status: Acute (6) Dehydration: Status: Acute (7) Sinus tachycardia: Status: Acute (8) Obesity: Status: Acute Qualifiers: Body mass index: BMI 38.0-38.9 Obesity classification: adult class 2 (BMI 35 - 39.9) Obesity type: unspecified obesity type Serious obesity comorbidity presence: unspecified whether serious comorbidity present Qualified Code(s): E66.9 - Obesity, unspecified; Z68.38 - Body mass index (BMI) 38.0-38.9, adult (9) Polycythemia: Status: Acute (10) Pulmonary hypertension: Status: Acute Reason for Visit Reason for Visit: cp/sob Hospital Course Discharge Summary: Kandy Nieves is a 44 year old female who does not carry significant past medical history is coming in with chief complaint of abdominal pain, nausea vomiting and headache. Patient is stating that she started experiencing dry heaves, experienced 4 episodes of emesis without any fever, diarrhea, she has been having throbbing headache as well which she is attributing to her migraine history, she has not noticed any slurring of speech, numbness, tingling, weakness of her extremities, blurry vision. Today she started experiencing palpitations, facial flushing which prompted her visit to the hospital. She is endorsing lot of burping episodes, she is not experiencing acid reflux but positive for metallic sensation. All of these constellation of symptoms necessitated a visit to the ER. In the ER she was initially evaluated by the ER physician, while she was being worked up started noticing that Mrs. Nieves was not paying enough attention to 's verbal command, her speech was not slurred but incoherent, she was not paying attention to the attendant at all. Dr. Rosas was called to evaluate who did CT head CTA head and neck. On admission case was discussed with [facility] neurology team and as NIH score was 1 TPA was not indicated. Patient was admitted to the floor for further work-up. COVID-19 test was done and was ruled out with a negative test on March 21, 2020. During hospitalization patient continued to have waxing and waning mentation with episodes of expressive aphasia along with high-grade fever going up to 103 Fahrenheit for which patient underwent lumbar puncture on March 22 which showed WBC of 192 with 90% mononuclear cell, CSF glucose of 73, CSF protein of 41, CSF RBC of 0. Results of CSF VDRL, CSF Lyme, CSF cryptococcal antigen, serum cryptococcal antigen, West Nile study, autoimmune work-up if still pending. Results are awaited also for HSV DNA 192, VZV from CSF. Patient has been on vancomycin, ceftriaxone, acyclovir, doxycycline since admission. As patient continued to have high-grade fevers along with waxing and waning mentation post viral vasculitis was considered and patient was started on methylprednisolone 40 mg IV every 6 hours. During hospitalization patient was found to have a partial seizure including fluttering of eyelids, jitteriness of the head and bilateral upper limbs for which he was loaded with IV Keppra. Repeat CT head was along with CT chest abdomen pelvis to rule out source of infection. Repeat CT head done on March showed a subacute infarct in left temporal region along with hyper density in left MCA consistent with a thrombus. Because of presence of thrombus patient most likely requires thrombectomy. 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 Case was discussed extensively in detail with intervention and general neurologist at [facility] who agreed with the possible hypothesis. Given the acuity and persistent fevers patient requires MRI of brain and close monitoring at a neurological floor and possible thrombectomy, neurologist at [facility] asked to be patient to be transferred to [place] for further treatment. Benefits were discussed with the family and they agreed for the same. Given the above patient is been transferred through [facility] in hemodynamically stable condition while saturating 95% on room air. Physical Exam Narrative: EXAM NARRATIVE: General: No acute distress, expressive aphasia, confused HEENT: PERRLA, pupils bilaterally equal and reactive Chest: Normal vesicular breath sounds, no added sounds, equal good air entry bilaterally CVS: S1-S2 regular, no murmurs, no tachycardia, no gallops, no rubs Abdomen: Soft, nontender, no organomegaly, bowel sounds present Neuro: No focal deficits, no facial deformity, power 5/5 in all limbs, following simple commands TS Data Data Completed and Pending: Completed Studies During Hospitalization Category Date Time Status CT abdomen pelvis wo con [id number] Stat Cat Scan 03/20/20 20:[address] angio headneck * [id number] Urge nt Cat Scan 03/20/20 16:55 Completed XR chest 1V remigoi ble [id number] Stat Exams 03/20/20 16:22 Completed Pending at discharge Category Date Time Status CT chest abd pel wo con Routine Cat Scan 03/23/20 11:[address] head wo con* [id number] Urgent Cat Scan 03/23/20 11:46 Ordered MOUSTAPHA Profile Rheum atology AM LABS Lab 03/23/20 03:58 Received Arterial Blood Ga s Full Stat Lab 03/20/20 16:38 Ordered Blood Culture Sta t Lab 03/20/20 19:05 Results Blood Culture Sta t Lab 03/22/20 10:56 Results CSF Culture & Gra m Stain Stat Lab 03/22/20 05:18 Results Clostridioides Di fficile PCR Routin e Lab 03/23/20 11:14 Ordered Cryptococcal Anti gen Stat Lab 03/23/20 11:52 Ordered Cryptococcal Anti gen Stat Lab 03/23/20 11:52 Uncollected Enteric Bacterial Panel by PCR Rout ine Lab 03/23/20 11:14 Ordered Enteric Parasite Panel by PCR Routi ne Lab 03/23/20 11:14 Ordered Erythrocyte Sedim entation Rate Rout ine Lab 03/23/20 03:58 Received Herpes Simplex Vi lisa DNA Routine Lab 03/22/20 05:18 Received Immunochemical Fe emma OCB Routine Lab 03/23/20 11:14 Ordered Lactoferrin Routi ne Lab 03/23/20 11:14 Ordered Lymes Disease Ant ibodies CSF Stat Lab 03/22/20 05:18 Received MRSA by PCR Routi ne Lab 03/23/20 11:14 Uncollected Miscellaneous Iris t Routine Lab 03/22/20 05:18 Received Oligoclonal Bands IGG, CSF Stat Lab 03/22/20 05:18 Received Tick Panel AM LAB S Lab 03/22/20 03:55 Received VDRL on CSF Stat Lab 03/22/20 05:18 Received Vancomycin Trough Routine Lab 03/24/20 13:00 Ordered West Nile Virus A B Panel,CSF Urgent Lab 03/23/20 11:15 Ordered MR head wo con* [id number] Routine MRI 03/23/20 11:10 Ordered Labs from last 24 hours 03/23/20 03/23/20 03/23/20 03:58 03:58 03:58 WBC RBC Hgb Hct MCV MCH MCHC RDW Plt Count MPV Neut % (Auto) Lymph % (Auto) Slope % (Auto) Eos % (Auto) Baso % (Auto) Neut # (Auto) Lymph # (Auto) Slope # (Auto) Eos # (Auto) Baso # (Auto) Nucleated RBC % (a uto) Nucleated RBCs # ESR Pending Sodium Potassium Chloride Carbon Dioxide Anion Gap BUN Creatinine GFR Calculation Glucose Calculated Osmolal ity Calcium Total Bilirubin AST ALT Alkaline Phosphata se C-Reactive Protein 1.1 Total Protein Albumin Globulin Free T4 Free T3 Vancomycin Trough MOUSTAPHA IFA Animal Tis Res Pending RAVEN-1 Antibody Pending SS-A Antibody Pending Sm (Downey) Antibod y Pending CONCRETE MIXER Antibody Pending Scl-70 Antibody Pending Anti-ds DNA IgG (C rith) Pending Centromere B Antib jesica Pending Thyroid Peroxidase Ab Pending Complement C3c Pending Complement C4c Pending CH50 Classical Pat hway Pending Nasal/Oral COVID-1 9 PCR 03/23/20 03/23/20 03/23/20 03:58 03:58 03:58 WBC 11.5 H RBC 4.30 Hgb 13.0 Hct 38.1 MCV 88.6 MCH 30.2 MCHC 34.1 RDW 12.5 Plt Count 213 MPV 10.2 Neut % (Auto) 72.9 Lymph % (Auto) 13.4 Slope % (Auto) 12.8 Eos % (Auto) 0.1 Baso % (Auto) 0.4 Neut # (Auto) 8.40 H Lymph # (Auto) 1.5 Slope # (Auto) 1.5 H Eos # (Auto) 0.0 Baso # (Auto) 0.1 Nucleated RBC % (a uto) 0 Nucleated RBCs # 0.0 ESR Sodium 133 L Potassium 3.2 L Chloride 96 L Carbon Dioxide 29 Anion Gap 11.2 BUN 8 Creatinine 0.4 L GFR Calculation 174.2 H Glucose 132 H Calculated Osmolal ity 274 L Calcium 7.8 L Total Bilirubin 0.6 AST 20 ALT 17 Alkaline Phosphata se 45 C-Reactive Protein Total Protein 6.3 L Albumin 3.9 Globulin 2.4 Free T4 Free T3 1.7 L Vancomycin Trough 9.8 L MOUSTAPHA IFA Animal Tis Res RAVEN-1 Antibody SS-A Antibody Sm (Downey) Antibod y CONCRETE MIXER Antibody Scl-70 Antibody Anti-ds DNA IgG (C rith) Centromere B Antib jesica Thyroid Peroxidase Ab Complement C3c Complement C4c CH50 Classical [place] Nasal/Oral COVID-1 9 PCR 03/22/20 03/20/20 03:55 16:50 WBC RBC Hgb Hct MCV MCH MCHC RDW Plt Count MPV Neut % (Auto) Lymph % (Auto) Slope % (Auto) Eos % (Auto) Baso % (Auto) Neut # (Auto) Lymph # (Auto) Slope # (Auto) Eos # (Auto) Baso # (Auto) Nucleated RBC % (a uto) Nucleated RBCs # ESR Sodium Potassium Chloride Carbon Dioxide Anion Gap BUN Creatinine GFR Calculation Glucose Calculated Osmolal ity Calcium Total Bilirubin AST ALT Alkaline Phosphata se C-Reactive Protein Total Protein Albumin Globulin Free T4 1.25 Free T3 Vancomycin Trough MOUSTAPHA IFA Animal Tis Res RAVEN-1 Antibody SS-A Antibody Sm (Downey) Antibod y CONCRETE MIXER Antibody Scl-70 Antibody Anti-ds DNA IgG (C rith) Centromere B Antib jesica Thyroid Peroxidase Ab Complement C3c Complement C4c CH50 Classical Pat [place]way Nasal/Oral COVID-1 9 PCR See report Addt'l Data from Hospital Stay: [place] [address] CT Scan Report Signed Patient: Kandy Nieves #: [id number] : 1975Acct#:[id number] Age/Sex: 44 / FADM Date: 03/20/20 Loc: [facility]/Bed: [facility] Attending Dr: Lou Rivera MD Ordering Provider/Ordering MD: Lou Rivera MD Date of Service: 03/20/20 Procedure(s): CT abdomen pelvis wo con [id number] Accession Number(s): [id number] Report Number: [id number] PROCEDURE INFORMATION: Exam: CT Abdomen And Pelvis Without Contrast Exam date and time: 03/20/2020 9:07 PM Age: 44 years old Clinical indication: Abdominal pain; Generalized; Additional info: Nausea vomiting TECHNIQUE: Imaging protocol: Computed tomography of the abdomen and pelvis without contrast. Radiation optimization: All CT scans at this facility use at least one of these dose optimization techniques: automated exposure control; mA and/or kV adjustment per patient size (includes targeted exams where dose is matched to clinical indication); or iterative reconstruction. COMPARISON: No relevant prior studies available. RADIATION DOSE METRICS: Total DLP (mGy-cm): 1496.66 FINDINGS: Heart: The heart is enlarged. There is a small pericardial effusion. Mediastinal space: A small hiatal hernia is present. Liver: Unremarkable.No mass. Gallbladder and bile ducts: There has been a cholecystectomy. There is no common bile duct dilation. Pancreas: Normal. No ductal dilation. Spleen: Normal. No splenomegaly. Adrenals: Normal. No mass. Kidneys and ureters: There is no evidence of hydronephrosis. Stomach and bowel: Extensive diverticulosis is present in the distal colon. There is no evidence of colitis/diverticulitis. There is no evidence of intestinal perforation or obstruction. Appendix: A normal appendix is identified. Intraperitoneal space: Unremarkable. No free air. No significant fluid collection. Vasculature: Unremarkable.No abdominal aortic aneurysm. Lymph nodes: Unremarkable.No enlarged lymph nodes. Bladder: The bladder is decompressed. Reproductive: Unremarkable as visualized. Bones/joints: Unremarkable. No acute fracture. Soft tissues: Unremarkable. CT/CT abdomen pelvis con [id number] IMPRESSION: No acute abnormality. No bowel thickening or inflammatory changes. Radiation Dose CTDIVOL = (mGy): DLP = 1496.66 (mGy-cm) CTA head and Neck: [address] [address] [address] Scan Report Signed with Hector Patient: Kandy Nieves #: [id number] : 1975Acct#:[id number] Age/Sex: 44 / FADM Date: 03/20/20 Loc: [facility]/Bed: Attending Dr: Ordering Provider/Ordering MD: Yael Bell DO Date of Service: 03/20/20 Procedure(s): CT angio headneck* [id number] Accession Number(s): [id number] Report Number: [id number] without contrast: Indication: Other: Stroke symptons; Additional info: CVA symptoms Comparison: No relevant prior studies available. Findings: The ventricles are of normal size and configuration. There are no intra or extra-axial masses, lesions or collections. The lindsay white matter distinction is maintained throughout the brain. There is no intracranial hemorrhage. The visualized bones and sinuses are unremarkable. Addendum Dictated By: Elvis Frias MD Addendum Signed By: Elvis Friasigned Date/Time:03/20/201758 Addendum Cosigned By: ADDENDUM CT/CT angio headneck* [id number] IMPRESSION: No acute findings. Radiation Dose CTDIVOL = (mGy): DLP = 3081.87~3081.87 (mGy-cm) Addendum Dictated By: Elvis Frias MD Addendum Signed By: Elvis Frias MDSigned Date/Time:03/20/201758 Addendum Cosigned By: PROCEDURE INFORMATION: Exam: CT Angiography Head With Contrast Exam date and time: 03/20/2020 5:02 PM Age: 44 years old Clinical indication: Other: Stroke symptons; Additional info: CVA symptoms TECHNIQUE: Imaging protocol: Computed tomography angiography of the head with intravenous contrast. 3D rendering: MIP and/or 3D reconstructed images were created by the technologist. Radiation optimization: All CT scans at this facility use at least one of these dose optimization techniques: automated exposure control; mA and/or kV adjustment per patient size (includes targeted exams where dose is matched to clinical indication); or iterative reconstruction. Contrast material: OMNI; Contrast volume: 95 ml; Contrast route: INTRAVENOUS (IV); COMPARISON: No relevant prior studies available. RADIATION DOSE METRICS: Total DLP (mGy-cm): 3081.87 FINDINGS: ANTERIOR CIRCULATION: Right internal carotid artery: Unremarkable. Intracranial segment is patent with no significant stenosis. No aneurysm. Right middle cerebral artery: Unremarkable. No occlusion or significant stenosis. No aneurysm. Right anterior cerebral artery: Unremarkable. No occlusion or significant stenosis. No aneurysm. Left internal carotid artery: Unremarkable. Intracranial segment is patent with no significant stenosis. No aneurysm. Left middle cerebral artery: Unremarkable. No occlusion or significant stenosis. No aneurysm. Left anterior cerebral artery: Unremarkable. No occlusion or significant stenosis. No aneurysm. POSTERIOR CIRCULATION: Right vertebral artery: Unremarkable. No occlusion or significant stenosis. No aneurysm. Left vertebral artery: Unremarkable. No occlusion or significant stenosis. No aneurysm. Basilar artery: Unremarkable. No occlusion or significant stenosis. No aneurysm. Right posterior cerebral artery: Unremarkable. No occlusion or significant stenosis. No aneurysm. Left posterior cerebral artery: Unremarkable. No occlusion or significant stenosis. No aneurysm. IMPRESSION: No large vessel stenosis or occlusion. PROCEDURE INFORMATION: Exam: CT Angiography Neck With Contrast Exam date and time: 03/20/2020 5:02 PM Age: 44 years old Clinical indication: Other: Stroke symptons; Additional info: CVA symptoms TECHNIQUE: Imaging protocol: Computed tomography angiography of the neck with intravenous contrast. 3D rendering: MIP and/or 3D reconstructed images were created by the technologist. Radiation optimization: All CT scans at this facility use at least one of these dose optimization techniques: automated exposure control; mA and/or kV adjustment per patient size (includes targeted exams where dose is matched to clinical indication); or iterative reconstruction. Contrast material: OMNI; Contrast volume: 95 ml; Contrast route: INTRAVENOUS (IV); COMPARISON: No relevant prior studies available. RADIATION DOSE METRICS: Total DLP (mGy-cm): 3081.87 FINDINGS: Right common carotid artery: No stenosis. No dissection or occlusion. Right internal carotid artery: No stenosis of the extracranial segment. No dissection or occlusion. Right external carotid artery: No occlusion or stenosis of the origin. Right vertebral artery: No stenosis. No dissection or occlusion. Left common carotid artery: No stenosis. No dissection or occlusion. Left internal carotid artery: No stenosis of the extracranial segment. No dissection or occlusion. Left external carotid artery: No occlusion or stenosis of the origin. Left vertebral artery: No stenosis. No dissection or occlusion. Bones/joints: No acute findings. Soft tissues: Normal. No significant soft tissue swelling. CT/CT angio headneck* [id number] IMPRESSION: No stenosis or occlusion. Vitals: Last Vital Signs Temp 103.2 F H 03/23/20 12:00 Pulse 135 H 03/23/20 12:00 Resp 18 03/23/20 12:00 BP 124/75 03/23/20 12:00 Pulse Ox 96 03/23/20 12:00 TS Medications Medications Home Medications aspirin 325 mg PO ONCE 03/20/20 [History Confirmed 03/20/20] hydrochlorothiazide 25 mg PO DAILY 03/20/20 [History Confirmed 03/20/20] lisinopril 20 mg PO DAILY 03/20/20 [History Confirmed 03/20/20] pravastatin 40 mg PO DAILY 03/20/20 [History Confirmed 03/20/20] verapamil 80 mg PO DAILY 03/20/20 [History Confirmed 03/20/20] Active Medications Aspirin (Aspirin Ec) 81 mg PO DAILY [facility] Last Admin: 03/23/20 08:27 Dose: 81 mg Documented by: Atorvastatin Calcium (Lipitor) 20 mg PO DAILY [facility] Last Admin: 03/23/20 08:27 Dose: 20 mg Documented by: Diltiazem HCl (Cardizem) 60 mg PO TID [facility] Last Admin: 03/23/20 08:27 Dose: 60 mg Documented by: Doxycycline Monohydrate (Vibramycin) 100 mg PO BID [facility]; Protocol Last Admin: 03/23/20 08:27 Dose: 100 mg Documented by: Enoxaparin Sodium (Lovenox) 40 mg SUBCUT Q24H [facility] Last Admin: 03/22/20 21:02 Dose: 40 mg Documented by: Hydralazine HCl (Apresoline) 25 mg PO QID [facility] Sodium Chloride (Sodium Chloride 0.9%) 1,000 mls @ 30 mls/hr IV .Q24H [facility] Last Admin: 03/22/20 17:54 Dose: 30 mls/hr Documented by: Ceftriaxone Sodium 2,000 mg/ (Sodium Chloride) 50 mls @ 100 mls/hr IV Q12H [facility]; Protocol Last Infusion: 03/23/20 07:34 Dose: Infused Documented by: Acyclovir 800 mg/ Sodium (Chloride) 116 mls @ 110 mls/hr IV Q8H [facility] Last Infusion: 03/23/20 10:15 Dose: Infused Documented by: Acetaminophen (Ofirmev) 1,000 mg in 100 mls @ 400 mls/hr IV Q8H PRN PRN Reason: fever Stop: 03/24/20 03:59 Vancomycin HCl 1,700 mg/ (Sodium Chloride) 250 mls @ 166.667 mls/hr IV Q8H [facility] Ketorolac Tromethamine (Toradol) 15 mg IVP Q8H PRN PRN Reason: MODERATE PAIN Stop: 03/27/20 09:34 Methylprednisolone Sodium Succinate (Solu-Medrol) 40 mg IVP Q6H [facility] Metoprolol Tartrate (Lopressor) 50 mg PO BID [facility] Last Admin: 03/23/20 08:27 Dose: 50 mg Documented by: Ondansetron HCl (Zofran) 4 mg IVP Q6H PRN PRN Reason: NAUSEA AND VOMITING Pantoprazole Sodium (Protonix) 40 mg PO DAILY [facility] Discharge Plan Discharge Patient Disposition: Xfer Other Condition: Fair Prescriptions: No Action aspirin 325 mg Tablet 325 mg PO ONCE RF: 0 pravastatin 40 mg Tablet 40 mg PO DAILY RF: 0 lisinopril 20 mg Tablet 20 mg PO DAILY RF: 0 hydrochlorothiazide 25 mg Tablet 25 mg PO DAILY RF: 0 verapamil 80 mg Tablet 80 mg PO DAILY RF: 0 Discharge Orders: Discharge Order (Routine); Ordered 03/23/20 Ordered By: Jerry Myrick Transfer Out of Facility (Order); Ordered 03/23/20 Ordered By: Jerry Myrick Transfer Attestations Time Spent in Transfer Care*: critical care time (Rapid response, seizure, multiple conversation with neurologist at [facility], family conversation, stroke treatment) Critical Care Time (min): 80 Specific Discharge Activities: Specific discharge activities: educating and/or supporting family/caregiver, discussing with pcp/other providers, discussing with sample case porter/social workers/dc planners, documenting/other paperwork and evaluating patient/reviewing data Status at Transfer: Cognitive status at transfer: severely impaired cognition, Behavioral status at transfer: cooperative, Functional status at transfer: independent ambulation Overall status at transfer: patient is not back to baseline Quality Metrics Clinical Quality Measures: During this hospital stay, did patient experience: Stroke Contraindication to Antithrombotic: Antithrombotic prescribed Contraindication to Anticoagulation: Overlap treatment not indicated Contraindication to Statin: Statin prescribed Contraindication to antithrombotic day 2: Antithrombotic given Contraindication to tPA: Did not meet criteria Rehab services assessed: Other Coding Level of Care Code Acute Publication Manager for Julianne Vaz Diagnoses Acute right MCA stroke I63.511 Infarction of left temporal lobe I63.89 Meningoencephalitis G04.90 Expressive aphasia R47.01 Partial seizures R56.9 Dehydration E86.0 Sinus tachycardia R00.0 Obesity E66.9; Z68.38 Body mass index: BMI 38.0-38.9 Obesity classification: adult class 2 (BMI 35 - 39.9) Obesity type: unspecified obesity type Serious obesity comorbidity presence: unspecified whether serious comorbidity present Polycythemia D75.1 Pulmonary hypertension I27.20
[2020-03-23 13:14] LABS: Erythrocyte Sedimentation Rate 8 mm/hr (0-15)
--- NOTE | 2020-03-23 13:43 | ECG_ITS ---
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 Measurements Intervals [place] Rate: 128 P: 49 NH: 136 QRS: 77 QRSD: 80 T: 12 QT: 334 QTc: 488 Interpretive Statements SINUS TACHYCARDIA ABNORMAL RHYTHM ECG Possible left atrial enlargement INTERPRETATION BASED ON A DEFAULT AGE OF 40 YEARS Compared to ECG 03/22/2020 09:33:10 T-wave abnormality no longer present Electronically Signed On 03-24-2020 9:26:42 CDT by Ileana Peres M.D. [email or web address]/store/[id number] f
[2020-03-23 13:59] LABS: ABG PCO2 32.4 mmHg (35-45); ABG PH Result 7.52 (7.35-7.45); Alveolar-Arterial Oxygen Gradi 6.5 mmHg (5-10); Arterial Blood Gas Hematocrit 41.4 % (37-47); Base Excess ABG 3.6 mmol/L (-2.0-2.0); Blood Gas Allen Test Pos; Blood Gas Sample Type Arterial; HCO3 ABG 26.1 mmol/L (22-26); HGB O2 Sat 92.4 % (95-100); Ionized Calcium Level - ABG 1.1 mmol/L (1.1-1.4); Methemoglobin < 0.0 % (0.4-1.5); Oxygen Saturation ABG 92.3; Total Hemoglobin 13.5 g/dL (12-16)
[2020-03-23 14:00] LABS: Blood Gas Operator Identificat ED; Blood Gas Sample Site Radial, right
--- NOTE | 2020-03-23 14:50 | PC.NURSE ---
1068 This staff member was called by the primary nurse for decline in patient after returning from CT. This staff and another nurse were able to transfer patient to the bed from the wheelchair and primary nurse began her assessment. Physician in room with new orders being given. Primary nurse, this charge nurse and an ICU nurse remain present in room.
--- NOTE | 2020-03-23 14:51 | PC.NURSE ---
[facility] NOTIFIED 1435: LATE ENTRY : NOTIFIED [facility] OF NEED TO TRANSFER PT VIA AIR - REQUEST DENIED X2 HELICOPTERS DUE TO WEATHER - [facility] TO ATTEMPT ANOTHER FLIGHT - WILL RETURN CALL TO NOTIFY THIS NURSE OF ABILITY TO TRANSFER
--- NOTE | 2020-03-23 14:54 | PC.NURSE ---
Dr Ames Doctor notified per this nurse regarding delay in transfer
[2020-03-23 14:59] LABS: Glucose Point of Care 122 mg/dL (70-110)
[2020-03-23 15:03] VITALS: BP 135/79; PULSE 130; RESP 30; TEMP 37.4; O2SAT 95
--- NOTE | 2020-03-23 15:05 | PC.NURSE ---
Prn note Patient resting quietly at this time. Respirations are even but tachypnea noted at 30. Hr remains at 130, 95% on RA. Bp 135/79.
--- NOTE | 2020-03-23 15:23 | PC.NURSE ---
FLIGHT FLIGHT SECURED PER THIS NURSE WITH [facility] AT [facility] ([phone]) - [facility] DR CAMPUZANO, [facility] AND NOTIFIED - ON FLOOR AT PRESENT TIME TO ASSESS PTS CONDITION
--- NOTE | 2020-03-23 16:36 | PC.NURSE ---
FLIGHT TEAM 1428: FLIGHT TEAM ON FLOOR TO RETRIEVE PATIENT
--- NOTE | 2020-03-23 19:05 | PC.NURSE ---
Rapid Response Pt arrived back to floor at [address] with Tatiana Lang LPN. This nurse was called in to the room to assess the pt d/t seizure-like activity. Pt was found to be having convulsions and was unresponsive. Rapid response was called at 1331 by Tatiana Lang. Vital signs and glucose were obtained- temp 100.7, HR 130s, RR 32, 96% RA, BP 159/90, glucose 122. Dr. Beltran, Dr. Myrick, and Dr. Suazo arrived to room at 1335. Orders given to give 1 gm keppra, 40 mg solumedrol, EKG stat; maintain O2 sat 98%; 1 mg Ativan PRN. ABG was drawn by RT. Gibbs catheter placed at 1400. Pt's , Samson, called and informed of pt change in status. Pt already had orders to be transferred to [facility] therefore was kept on MS while waiting for transportation team to arrive. This nurse and Jennifer Jalloh RN stayed in the room with pt until flight team arrived at 1428.
[2020-03-23 19:20] VITALS: BP 135/79; PULSE 130; RESP 30; TEMP 37.4; O2SAT 95
[2020-03-24 11:39] LABS: Lyme AB Screen <0.90 index
[2020-03-24 16:00] LABS: THYROID PEROXIDASE ANTIBODIES 1 IU/mL (<9)
[2020-03-25 13:55] LABS: ANA SCREEN, IFA NEGATIVE (NEGATIVE)
[2020-03-25 15:49] LABS: CENTROMERE B ANTIBODY <1.0 NEG AI (<1.0 NEG); JO-1 ANTIBODY <1.0 NEG AI (<1.0 NEG); RNP ANTIBODY <1.0 NEG AI (<1.0 NEG); SCL-70 ANTIBODY <1.0 NEG AI (<1.0 NEG); SJOGREN'S ANTIBODY (SS-A) <1.0 NEG AI (<1.0 NEG); SM ANTIBODY <1.0 NEG AI (<1.0 NEG)
[2020-03-26 16:05] LABS: RMSF IGG NOT DETECTED; RMSF IGM NOT DETECTED
[2020-03-26 16:35] LABS: E. Chaffeensis AB IGG <1:64; E. Chaffeensis AB IGM <1:20
[2020-03-26 22:20] LABS: VDRL on CSF NON-REACTIVE
[2020-03-27 02:05] LABS: DNA AB (DS) CRITHIDIA,IFA NEGATIVE (NEGATIVE)
[2020-03-27 13:34] LABS: Oligoclonal Bands IGG, CSF NO BANDS (NO BANDS)
[2020-03-27 17:24] LABS: HSV 1 DNA DETECTED; HSV 2 DNA NOT DETECTED; HSV Source CEREBROSPINAL FLUID
[2020-03-27 21:40] LABS: Lyme Disease AB (IGG),IBL NO BANDS DETECTED; Lyme Disease AB (IGM), IBL NO BANDS DETECTED
[2020-03-30 18:55] LABS: West Nile Virus AB (IGG) <1.30 index; West Nile Virus AB (IGM) <0.90 index
== END 2020-03-23 14:28 | disposition short-term general hospital (02) | DRG 97 ==
LOC: ER 16:37 → MEDSURG 19:53
PROVIDERS: Student in an Organized Health Care Education/Training Program; Admitting Provider Internal Medicine; Emergency Provider Emergency Medicine; Visit Provider Student in an Organized Health Care Education/Training Program
DX: G04.90 Encephalitis and encephalomyelitis, unspecified (principal); I63.511 Cerebral infarction due to unspecified occlusion or stenosis of right middle cerebral artery; I63.89 Other cerebral infarction; R47.01 Aphasia; G40.109 Localization-related (focal) (partial) symptomatic epilepsy and epileptic syndromes with simple partial seizures, not intractable, without status epilepticus; I10 Essential (primary) hypertension; E86.0 Dehydration; R00.0 Tachycardia, unspecified; E66.9 Obesity, unspecified; Z68.38 Body mass index [BMI] 38.0-38.9, adult; D75.1 Secondary polycythemia; R29.701 NIHSS score 1; I27.20 Pulmonary hypertension, unspecified; Z79.82 Long term (current) use of aspirin
CPT/HCPCS: 12345; 36415; 36416; 51702; 70450; 70496; 70498; 71045; 71250; 74176; 80048; 80051; 80053; 80202; 80500; 81001; 82810; 82945; 82962; 83036; 83605; 83735; 83986; 84145; 84157; 84439; 84443; 84481; 84484; 84703; 85025; 85378; 85610; 85651; 85730; 86140; 86403; 86592; 86617; 86618; 86666; 86757; 86788; 86789; 87040; 87070; 87075; 87205; 87327; 87530; 87635; 87804; 87806; 89050; 93005; 96372; 96375; 99283; G0378; J0133; J0696; J1650; J1885; J1953; J2060; J2543; J2920; J3370; J3490; J7030; J7050; Q9967

== ENCOUNTER 2020-04-08 14:43 | Outpatient (CLI) | payer MEDICAID, SELFPAY ==
[2020-04-08 15:08] LABS: Basophils # 0.1 10^3/uL (0.0-0.1); Basophils % 1.1 %; Eosinophils # 0.1 10^3/uL (0.0-0.8); Eosinophils % 2.2 %; Hematocrit 40.3 % (37.0-47.0); Hemoglobin 13.3 g/dL (11.5-15.3); Lymphocytes # 1.1 10^3/uL (0.8-4.8); Lymphocytes % 24.3 %; Mean Corpuscular Hemoglobin 31.1 pg (28.0-34.0); Mean Corpuscular Volume 94.4 fL (81-99); Mean Platelet Volume 10.3 fL (7.4-10.4); Monocytes # 0.6 10^3/uL (0.2-0.9); Neutrophils # 2.77 10^3/uL (1.8-7.7); Neutrophils % 60.2 %; Nucleated Red Blood Cells % 0 %; Platelet Count 256 10^3/cmm (130-400); Red Blood Count 4.27 10^6/uL (4.1-5.3); Red Cell Distribution Width 14.6 % (12.1-15.1); White Blood Count 4.6 10^3/uL (4.0-10.0)
[2020-04-08 15:27] LABS: Blood Urea Nitrogen 7 mg/dL (6-20); Calcium 9.3 mg/dL (8.5-10.5); Carbon Dioxide 26 mmol/L (22-29); Chloride 100 mmol/L (98-107); Glomerular Filtration Rate 109.1 mL/min (90-130); Glucose 103 mg/dL (65-115); Osmolality Calculated 280 mOsm/kg (285-295); Sodium 137 mmol/L (136-145)
== END 2020-04-08 14:44 | disposition home or self-care (01) ==
LOC: LAB 14:47
PROVIDERS: Visit Provider Psychiatry & Neurology Neurology
DX: G04.90 Encephalitis and encephalomyelitis, unspecified (principal)
CPT/HCPCS: 80048; 85025

== ENCOUNTER 2020-06-05 12:01 | Outpatient (CLI) | payer MEDICAID, SELFPAY ==
--- NOTE | 2020-06-05 12:30 | MR_ITS ---
WS: [id number] MRI BRAIN WITHOUT CONTRAST HISTORY: headache S/P HSV encephalitis COMPARISON: CT 03/23/2020 TECHNIQUE: Diffusion imaging, multiplanar T1, T2 and FLAIR imaging obtained. There is some very mild restricted diffusion in the LEFT cerebrum. This is predominantly around the L EFT lateral ventricle and the chinchilla radiata and also extending slightly above the lateral ventricles and inferiorly into the medial and anterior temporal lobe. There is extensive T2 and FLAIR signal in volving the LEFT temporal lobe and to a lesser extent the medial RIGHT temporal lobe and anterior fro ntal lobes. There is involvement of the LEFT insular ribbon and external capsule. There are a few sma ll lobulated cystic areas in the medial LEFT temporal lobe. No hemorrhage. There is sulcal effacement in the LEFT frontal, temporal and parietal lobes but no midline shift. Ventricles and extra-axial spaces are normal. No inferior displacement of cerebellar tonsils. The sella turcica and pituitary gland are unremarkabl e. Posterior fossa is also unremarkable. Dural venous sinuses and [place] demonstrate no abnormality on this unenhanced studies. Paranasal sinuses: Clear. Mastoid air cells: Normal. Calvarium and scalp: Intact. MR/MR head wo con* [id number] IMPRESSION: 1. Abnormal T2 and FLAIR signal involving a large portion of the LEFT temporal and parietal lobes with a lesser amount of increased signal in the frontal and RIGHT temporal lobe. Consistent with a history of herpes encephalitis. Recomme nd continued close follow-up as there is significant still significant amount o f signal abnormality. Postcontrast imaging may be helpful to evaluate for enhan cing lesions. Typically herpes encephalitis does not enhance but can. 2. No hemorrhage.
== END 2020-06-05 12:02 | disposition home or self-care (01) ==
PROVIDERS: PCP Nurse Practitioner; Visit Provider Nurse Practitioner
DX: B00.3 Herpesviral meningitis (principal); R51.9 Headache, unspecified
CPT/HCPCS: 70551

== ENCOUNTER → 2020-06-20 08:55 | Outpatient (BNVA) | payer MEDICAID, SELFPAY | PROVIDERS: PCP Nurse Practitioner; Visit Provider Nurse Practitioner | DX: I10 Essential (primary) hypertension (principal); B00.3 Herpesviral meningitis | CPT/HCPCS: 80053; 80061; 84439; 84443; 84481; 85025 ==

== ENCOUNTER → 2020-09-24 09:21 | Outpatient (BNVA) | payer MEDICAID, SELFPAY | PROVIDERS: PCP Nurse Practitioner; Referring Provider Family Medicine; Visit Provider Nurse Practitioner | DX: I10 Essential (primary) hypertension (principal); D75.1 Secondary polycythemia; G04.90 Encephalitis and encephalomyelitis, unspecified | CPT/HCPCS: 80053; 80061; 85025 ==

== ENCOUNTER → 2020-10-16 10:02 | Outpatient (BNVA) | payer MEDICAID, SELFPAY | PROVIDERS: PCP Nurse Practitioner; Visit Provider Nurse Practitioner Family | DX: Z20.822 Contact with and (suspected) exposure to COVID-19 (principal) | CPT/HCPCS: 87635 ==

== ENCOUNTER → 2021-03-24 08:51 | Outpatient (BNVA) | payer MEDICAID, SELFPAY | PROVIDERS: PCP Nurse Practitioner; Visit Provider Nurse Practitioner | DX: I10 Essential (primary) hypertension (principal); B00.3 Herpesviral meningitis; E78.2 Mixed hyperlipidemia; R56.9 Unspecified convulsions | CPT/HCPCS: 80053; 80061; 84443; 85025 ==

== ENCOUNTER → 2021-06-22 09:35 | Outpatient (BNVA) | payer MEDICAID, SELFPAY | PROVIDERS: PCP Nurse Practitioner; Visit Provider Nurse Practitioner | DX: I10 Essential (primary) hypertension (principal); R56.9 Unspecified convulsions; E78.2 Mixed hyperlipidemia; B00.3 Herpesviral meningitis | CPT/HCPCS: 80053 ==

== ENCOUNTER → 2021-12-28 08:14 | Outpatient (BNVA) | payer MEDICAID, SELFPAY | PROVIDERS: PCP Nurse Practitioner; Visit Provider Nurse Practitioner | DX: E78.5 Hyperlipidemia, unspecified (principal); I10 Essential (primary) hypertension | CPT/HCPCS: 80053; 80061; 85025 ==

== ENCOUNTER 2022-05-14 14:37 | Outpatient (CLI) | payer MEDICAID, SELFPAY ==
--- NOTE | 2022-05-14 15:15 | USCV_ITS ---
Kandy Nieves Age: 46 Gender: F : 1975 Exam Date: 05/14/2022 15:13 Ordering Phys: Nelda Tenorio Technologist: Yolis Arciniega [place]am [place] [facility] [place]: RLE swelling HISTORY: RLE intermittent swelling PROCEDURES: Venous duplex imaging was performed in only the right lower extremity. The following venous structures were evaluated: common femoral vein, profunda vein, proximal portion of the greater saphenous vein, superficial femoral vein, and the popliteal vein. In addition, the posterior tibial and peroneal trunk were evaluated. FINDINGS: All veins examined appear free of thrombus. No filling defects on color Doppler flow analysis. Vein flow and caliber vary with respiration. Increase in venous flow with augmentation. All veins appear compressible.. CONCLUSIONS No evidence of right lower extremity DVT. Raghav Mullins MD (Electronically Signed) Final Date: 14 May 2022 16:12 S
== END 2022-05-14 14:38 | disposition home or self-care (01) ==
PROVIDERS: PCP Nurse Practitioner; Visit Provider Nurse Practitioner
DX: M79.89 Other specified soft tissue disorders (principal)
CPT/HCPCS: 93971

== ENCOUNTER → 2022-06-16 08:54 | Outpatient (BNVA) | payer MEDICAID, SELFPAY | PROVIDERS: PCP Nurse Practitioner; Visit Provider Nurse Practitioner | DX: I25.10 Atherosclerotic heart disease of native coronary artery without angina pectoris (principal); I10 Essential (primary) hypertension; E78.2 Mixed hyperlipidemia; B00.3 Herpesviral meningitis; Z28.21 Immunization not carried out because of patient refusal | CPT/HCPCS: 80053; 80061; 85025 ==

== ENCOUNTER → 2022-12-01 09:11 | Outpatient (BNVA) | payer MEDICAID, SELFPAY | PROVIDERS: PCP Nurse Practitioner; Visit Provider Nurse Practitioner | DX: I10 Essential (primary) hypertension (principal) | CPT/HCPCS: 80053; 80061; 80177; 84443; 85025 ==

== ENCOUNTER → 2022-12-09 10:04 | Outpatient (BNVA) | payer MEDICAID, SELFPAY | PROVIDERS: PCP Nurse Practitioner; Visit Provider Nurse Practitioner | DX: R74.8 Abnormal levels of other serum enzymes (principal) | CPT/HCPCS: 86705; 86706; 86709; 86803; 87340 ==

== ENCOUNTER → 2023-06-06 08:26 | Outpatient (BNVA) | payer MEDICAID, SELFPAY | PROVIDERS: PCP Nurse Practitioner; Visit Provider Nurse Practitioner | DX: I10 Essential (primary) hypertension (principal); E78.2 Mixed hyperlipidemia; B00.3 Herpesviral meningitis; E78.5 Hyperlipidemia, unspecified; E66.9 Obesity, unspecified; Z23 Encounter for immunization | CPT/HCPCS: 80053; 80061 ==

== ENCOUNTER → 2023-11-21 08:22 | Outpatient (BNVA) | payer MEDICAID, SELFPAY | PROVIDERS: PCP Nurse Practitioner; Visit Provider Nurse Practitioner | DX: I10 Essential (primary) hypertension (principal); B00.3 Herpesviral meningitis; E78.2 Mixed hyperlipidemia | CPT/HCPCS: 80053; 80061 ==

== ENCOUNTER 2023-12-27 09:03 | Outpatient (CLI) | payer MEDICAID, SELFPAY ==
--- NOTE | 2023-12-27 09:30 | MM_ITS ---
WS: [id number] Bilateral screening 3D tomosynthesis digital mammogram, 12/27/2023 Clinical Data: Z12.31 - Encounter for screening mammogram for malignant ... Comparison: None. Findings: The breast parenchymal pattern shows fibroglandular tissue. In the upper outer quadrant of the right breast there is a 7 x 10.5 cm lesion with a well-defined border and mixed tissue density. This lesion has no specific characteristics but could represent an old hematoma or even a hamartoma. The left br east is normal. No spiculated masses or clustered calcifications are seen. There are no secondary sig ns of carcinoma. MM/[place] [id number] Impression: 1. 7 x 10.5 cm complex lesion in the upper outer quadrant right breast and rec ommend right breast ultrasound. 2. Negative left breast. BIRADS: 0-Incomplete: Need additional imaging evaluation FOLLOW UP: See Report The CAD stock checkerer was used.
== END 2023-12-27 09:04 | disposition home or self-care (01) ==
LOC: MOBLMAM 09:08
PROVIDERS: PCP Nurse Practitioner; Visit Provider Nurse Practitioner
DX: Z12.31 Encounter for screening mammogram for malignant neoplasm of breast (principal); N63.11 Unspecified lump in the right breast, upper outer quadrant; R92.321 Mammographic fibroglandular density, right breast
CPT/HCPCS: 77063; 77067

== ENCOUNTER 2024-01-23 13:30 | Outpatient (CLI) | payer MEDICAID, SELFPAY ==
--- NOTE | 2024-01-23 14:00 | US_ITS ---
WS: [id number] ULTRASOUND BREAST RIGHT TECHNIQUE: Ultrasound right breast focused area of concern. CLINICAL INFORMATION: R92.8 - Other abnormal and inconclusive findings on diagn... COMPARISON: Screening mammogram 12/27/2023 FINDINGS: Ultrasound RIGHT breast upper outer quadrant demonstrates a 6.6 x 2.3 x 6.2 cm slightly heterogeneous and well-circumscribed lesion with with internal echogenicity most compatible with lipoma or fibroad enolipoma. This is probably benign and recommend 6-month follow-up to confirm stability considering no prior com parisons. US/US breast RT limited* [id number] IMPRESSION: BI-RADS 3 probably benign Follow-up: Recommend 6-month follow-up Recommend RIGHT breast diagnostic mammography and ultrasound in 6 months to con firm stability of the fat-containing mass
== END 2024-01-23 13:31 | disposition home or self-care (01) ==
LOC: RAD 13:30
PROVIDERS: PCP Nurse Practitioner; Visit Provider Nurse Practitioner
DX: R92.8 Other abnormal and inconclusive findings on diagnostic imaging of breast (principal)
CPT/HCPCS: 76642

== ENCOUNTER → 2024-05-07 08:56 | Outpatient (BNVA) | payer MEDICAID, SELFPAY | PROVIDERS: PCP Nurse Practitioner; Visit Provider Nurse Practitioner | DX: I10 Essential (primary) hypertension (principal); E78.2 Mixed hyperlipidemia | CPT/HCPCS: 80053; 80061 ==

== ENCOUNTER → 2024-10-08 17:42 | Outpatient (BNVA) | payer MEDICAID, SELFPAY | PROVIDERS: PCP Nurse Practitioner; Visit Provider Family Medicine | DX: S52.502A Unspecified fracture of the lower end of left radius, initial encounter for closed fracture (principal); W19.XXXA Unspecified fall, initial encounter | CPT/HCPCS: 73110 ==

== ENCOUNTER → 2024-10-11 13:20 | Outpatient (BNVA) | payer MEDICAID, SELFPAY | PROVIDERS: PCP Nurse Practitioner; Visit Provider Nurse Practitioner | DX: I10 Essential (primary) hypertension (principal) | CPT/HCPCS: 80053; 80061; 85025 ==

== ENCOUNTER → 2024-10-12 08:23 | Outpatient (BNVA) | payer MEDICAID, SELFPAY | PROVIDERS: PCP Nurse Practitioner; Referring Provider Family Medicine; Visit Provider Specialist | DX: S52.572A Other intraarticular fracture of lower end of left radius, initial encounter for closed fracture (principal); X58.XXXA Exposure to other specified factors, initial encounter | CPT/HCPCS: 73110 ==

== ENCOUNTER 2024-10-12 09:24 | Outpatient (CLI) | payer MEDICAID, SELFPAY | END 2024-10-12 09:25 | disposition home or self-care (01) | LOC: SPT 09:25 | PROVIDERS: PCP Nurse Practitioner; Visit Provider Specialist | DX: S52.572A Other intraarticular fracture of lower end of left radius, initial encounter for closed fracture (principal); X58.XXXA Exposure to other specified factors, initial encounter; Z46.89 Encounter for fitting and adjustment of other specified devices | CPT/HCPCS: 25600; 99204; L3982 ==

== ENCOUNTER → 2024-10-29 09:09 | Outpatient (BNVA) | payer MEDICAID, SELFPAY | PROVIDERS: PCP Nurse Practitioner; Visit Provider Specialist | DX: S52.502D Unspecified fracture of the lower end of left radius, subsequent encounter for closed fracture with routine healing (principal); X58.XXXD Exposure to other specified factors, subsequent encounter | CPT/HCPCS: 73110; 99024 ==

== ENCOUNTER → 2024-12-12 09:23 | Outpatient (BNVA) | payer MEDICAID, SELFPAY | PROVIDERS: PCP Nurse Practitioner; Visit Provider Specialist | DX: S52.502D Unspecified fracture of the lower end of left radius, subsequent encounter for closed fracture with routine healing (principal); X58.XXXD Exposure to other specified factors, subsequent encounter | CPT/HCPCS: 73110; 99213 ==

== ENCOUNTER → 2025-03-25 09:42 | Outpatient (BNVA) | payer MEDICAID, SELFPAY | PROVIDERS: PCP Nurse Practitioner; Visit Provider Nurse Practitioner | DX: I10 Essential (primary) hypertension (principal); E78.2 Mixed hyperlipidemia; E55.9 Vitamin D deficiency, unspecified | CPT/HCPCS: 80053; 80061; 82306; 84443 ==